=== PATIENT | female | born 1960 | race Two or more races ===

== ENCOUNTER 2017-05-16 08:12 | Emergency (ER) | payer OTHER ==
[2017-05-16] MEDS ORDERED: methylPREDNISolone 125 MG* 2 ML VIAL IV ONE (08:24)
[2017-05-16] MEDS ORDERED: Ipratropium 0.5MG/2.5ML NEB* 0.5 MG/2.5 ML NEB.SOLN INH ONE (08:24)
[2017-05-16] MEDS ORDERED: Albuterol 2.5 MG/3 ML NEB.SOL* (0.083%) INH ONE (08:24)
--- NOTE | 2017-05-16 08:31 | UC ---
Shortness of Breath HPI - HPI Summary HPI Summary: 56 yo female with progressively worsening dyspnea x 4 days no CP no fever - History of Current Complaint Stated Complaint: SOB Hx Obtained From: Patient Onset/Duration: Sudden Onset, Lasting Days Timing: Constant Current Severity: Severe Dyspnea At: Rest Alleviating Factors: Nothing Associated Signs & Symptoms: Positive: Cough (Nonproductive) - Allergy/Home Medications Allergies/Adverse Reactions: Allergies Allergy/AdvReac Type Severity Reaction Status Date / Time Hydroxychloroquine Allergy Unknown Verified 04/09/14 11:39 Reaction Details Lisinopril Allergy Unknown Verified 04/09/14 11:39 Reaction Details PMH/Surg Hx/FS Hx/Imm Hx Previously Healthy: No - SAN[place] Respiratory History: COPD, Bronchitis, Pneumonia - Surgical History Surgical History: Yes Surgery Procedure, Year, and Place: 1988 LOWER LEFT LUMBAR SURGERY, [place], [place]. LEFT BREAST BIOPSY-BENIGN - Family History Known Family History: Positive: Hypertension - Social History Alcohol Use: Occasionally Substance Use Type: None Smoking Status (MU): Current Every Day Smoker Type: Cigarettes Amount Used/How Often: 1/2 ppd Have You Smoked in the Last Year: Yes Household Exposure Type: Cigarettes - Immunization History Most Recent Influenza Vaccination: none Most Recent Tetanus Shot: up to date Most Recent Pneumonia Vaccination: none Review of Systems Constitutional: Fatigue Skin: Negative Eyes: Negative ENT: Negative Respiratory: Shortness Of Breath, Cough Cardiovascular: Negative Gastrointestinal: Negative Genitourinary: Negative Motor: Negative Neurovascular: Negative Musculoskeletal: Negative Neurological: Negative Psychological: Negative Is Patient Immunocompromised?: No All Other Systems Reviewed And Are Negative: Yes Physical Exam Triage Information Reviewed: Yes Appearance: Ill-Appearing Vital Signs Reviewed: Yes Eyes: Positive: Conjunctiva Clear ENT: Positive: Hearing grossly normal, Uvula midline. Negative: Nasal congestion, TM bulging Neck: Positive: Supple Respiratory: Positive: Respiratory distress, Decreased breath sounds, Accessory muscle use, Wheezing, Other: - increased work of breathing Cardiovascular: Positive: RRR Diagnostics - Laboratory Diagnostic Studies Completed/Ordered: pox 81% on 4 L NC, comment - hypoxia Shortness of Breath Dx - Course Course Of Treatment: d/w Dr. Duarte. To [facility] via EMS - Differential Dx/Diagnosis Provider Diagnoses: dyspnea/hypoxia. COPD Discharge - Discharge Plan Condition: Guarded Disposition: [facility] Referrals: Alma Delia Castellano MD [Primary Care Provider] -
[2017-05-16 08:32] VITALS: BP 158/67
== END 2017-05-16 08:56 | disposition short-term general hospital (02) ==
LOC: UCEAST 08:12 → MERGE 08:12 → UCEAST 08:56
DX: R06.00 Dyspnea, unspecified (principal); Z72.0 Tobacco use; R09.02 Hypoxemia; J44.9 Chronic obstructive pulmonary disease, unspecified
CPT/HCPCS: 96372; 99213; G0463; J2930; J7644

== ENCOUNTER 2017-05-16 09:21 | Inpatient (IN) | payer OTHER ==
[2017-05-16 09:34] LABS: EPAP 7.5; FIO2 100
[2017-05-16 09:40] LABS: Hematocrit 44 % (35-47); Hemoglobin 14.7 g/dl (12.0-16.0); Mean Corpuscular HGB Conc 33 g/dl (31-36); Mean Corpuscular Hemoglobin 30 pg (27-31); Mean Corpuscular Volume 90 fL (80-97); Mean Platelet Volume 8 um3 (7.4-10.4); Red Blood Count 4.96 10^6/ul (4.0-5.4); Red Cell Distribution Width 16 % (10.5-15); White Blood Count 10.1 10^3/ul (3.5-10.8)
[2017-05-16 09:41] LABS: PCO2 Arterial 53 mmHg (35-45)
[2017-05-16 09:52] LABS: Albumin 4.2 g/dL (3.2-5.2); BUN/Creatinine Ratio 31.5 (8-20); C Reactive Protein 14.02 mg/L (< 5.00); Calcium 9.7 mg/dL (8.6-10.3); EGFR African American 149.1 (>60); Globulin 3.7 g/dL (2-4); Potassium 3.9 mmol/L (3.5-5.0); Total Bilirubin 0.4 mg/dL (0.2-1.0); Total Protein 7.9 g/dL (6.4-8.9)
--- NOTE | 2017-05-16 10:45 | RAD ---
INDICATION: Shortness of breath. COMPARISON: Comparison is made with a prior chest x-ray study from February 24, 2016. TECHNIQUE: A portable view of the chest was obtained. FINDINGS: Cardiac and mediastinal contours appear to be within normal limits. The lungs are hyperinflated and clear. No pleural effusion is seen. IMPRESSION: NO EVIDENCE FOR ACUTE FINDING.
[2017-05-16 11:15] LABS: BIPAP 10; FIO2 100; IPAP 5
[2017-05-16 11:17] LABS: PCO2 Arterial 58 mmHg (35-45)
[2017-05-16] MEDS ORDERED: Albuterol/Ipratropium NEB.SOL* Albuterol 2.5 MG/Ipratropium 0.5 MG 3 ML INH PRN (12:34)
[2017-05-16] MEDS ORDERED: Nicotine Inhaler* 10 MG AMP INH PRN (12:59)
--- NOTE | 2017-05-16 12:59 | HP ---
H&P (Free Text) History and Physical: CRITICAL CARE MEDICINE DATE: 05/16/17 TIME: 1200 PRIMARY CARE PROVIDER: Gray. REFERRING PROVIDER: Darci REASON/CHIEF COMPLAINT: sob HISTORY OF PRESENT ILLNESS: 56 F with chronic res failure on 4L O2 at home and bipap nocturnally, still working at [employer], and still smoking; started with URI and then she thinks it progressed to her chest and shortness of breath inc over last 2 days. No real increased sputum. No fever, chills, cp. REVIEW OF SYSTEMS: As per HPI. PAST MEDICAL HISTORY: As per HPI. Severe COPD, mod-severe dec diffusion capacity as well, HTN, tolu, obesity. MEDICATIONS: Reviewed. ALLERGIES: Hydroxychloroquine, lisinopril SOCIAL HISTORY: Reviewed. , active tob use when off o2 FAMILY HISTORY: Noncontributory at present. PHYSICAL EXAM: Vital Signs: Reviewed. Neurologic: awake, communicating, nonfocal, holds [place] HEENT: anicteric, adentition, mmm Cardiovascular: S1, S2 distant Respiratory: wheezes, R>L Abdomen: obese, soft Extremities: warm, chronic dep edema Access: piv LABS: Reviewed. IMAGING: Reviewed. no new acute dz MEDICATIONS: Reviewed. ASSESSMENT: 56 F Acute on chronic hypercarbic resp failure COPD exacerbation PLAN: Neurologic: stable. Cardiovascular: Perfusing. Mild interstitial volume, and much of these may be a chronic component of her chronic pulm htn degree. No need to augment. Respiratory: Rescued with bipap to improve her ventilation and now her A-a gradient vastly improved post ventilation. Can come off bipap. f/u her wheeze/ bronchospasm as she may still benefit from some more time with bipap today and then certainly tonight. IV steroids and copd adjunctives. No pna, nor really even bronchitis and would reserve abx at this time, but if lingering could consider for copd exac/anti-inflam benefits. Gastrointestinal: Po diet. Renal/Metabolic: stable. f/u with steroids. no ivf needed. Infectious Disease: as above Hematology: stable. lovenox sq Endocrine: steroids and taper. bg ok Musculoskeletal: oob and avoid deconditioning Psych/Social: pt and expressed understanding. we discuss tob cessation. try inh. Supportive and preventative care as ordered. Vaccine: received previously. SUP: po VTE prophylaxis: lovenox Disposition: ICU today Code Status: Full Critical Care Time: 45min Ann Torres DO
[2017-05-16] MEDS ORDERED: Albuterol/Ipratropium NEB.SOL* Albuterol 2.5 MG/Ipratropium 0.5 MG 3 ML INH SCH (13:00)
[2017-05-16] MEDS ORDERED: ALPRAZolam TAB* 0.25 MG PO PRN (13:47)
[2017-05-16] MEDS: methylPREDNISolone SOD 40 MG* 1 ML VIAL IV SCH ×2 (14:35→21:33)
[2017-05-16] MEDS: Enoxaparin(*) 40 MG/0.4 ML SYR SUBCUT SCH (14:35)
--- NOTE | 2017-05-16 18:57 | ED ---
Jonathan Turner Angela, scribed for J Luis Bejarano MD on 05/16/17 at 0926 . Shortness of Breath - HPI Summary HPI Summary: This pt is a 56 y/o female presenting to [facility] via EMS from Urgent Care c/o dyspnea and respiratory distress today. She states that while at work yesterday she was without oxygen and had increased SOB. Pt notes that when she got home from work she increased her home O2 NC from her normal 4L to 5L with minimal improvement. Pt reports she has been having cold symptoms for the past week. Pt does not know her baseline O2 saturation on home O2. Per EMS, pt was off O2 for 2 minutes as her home O2 NC fell off and her O2 saturation dropped to 74%. They state it took 5 minutes to get the pt back up to 89% with CPAP. En route, pt had 2 duo nebs and 125 mg Solu-medrol. PMHx includes COPD, HTN. - History of Current Complaint Time Seen by Provider: 05/16/17 09:22 Hx Obtained From: Patient, EMS, Medical Records - triage note Onset/Duration: Lasting Days, Still Present Timing: Constant Current Severity: Severe Dyspnea At: Rest Alleviating Factors: Oxygen, Other - solu-medrol, bipap, and duo-nebs Associated Signs & Symptoms: Wheezing - Allergy/Home Medications Allergies/Adverse Reactions: Allergies Allergy/AdvReac Type Severity Reaction Status Date / Time Hydroxychloroquine Allergy Unknown Verified 04/09/14 11:39 Reaction Details Lisinopril Allergy Unknown Verified 04/09/14 11:39 Reaction Details Home Medications: Home Medications Albuterol/Ipratropium NEB.GEORGETTE* [Duoneb (Albuterol 2.5 MG/Ipratropium 0.5 MG)] 1 neb INH QID PRN 05/16/17 [History Confirmed 05/16/17] Fluticasone HFA 110 mcg(NF) [Flovent HFA 110 mcg(NF)] 2 puff INH BID 05/16/17 [ History Confirmed 05/16/17] Hydrochlorothiazide TAB* [Hydrodiuril TAB*] 12.5 mg PO DAILY 05/16/17 [History Confirmed 05/16/17] Irbesartan (NF) [Avapro (NF)] 300 mg PO DAILY 05/16/17 [History Confirmed ] amLODIPine TAB* [Norvasc 5 mg TAB*] 10 mg PO DAILY 05/16/17 [History Confirmed 05/16/17] PMH/Surg Hx/FS Hx/Imm Hx Cardiovascular History: Reports: Hx Hypertension, Other Cardiovascular Problems/ Disorders - HBP Respiratory History: Reports: Hx Asthma, Hx Chronic Obstructive Pulmonary Disease (COPD) Musculoskeletal History: Reports: Hx Arthritis - BILATERAL KNEES, BACK Sensory History: Reports: Hx Contacts or Glasses Denies: Hx Hearing Aid Opthamlomology History: Reports: Hx Contacts or Glasses - Cancer History Hx Chemotherapy: No Hx Radiation Therapy: No - Surgical History Surgery Procedure, Year, and Place: 1988 LOWER LEFT LUMBAR SURGERY, [place], [place]. LEFT BREAST BIOPSY-BENIGN Hx Anesthesia Reactions: No Infectious Disease History: Denies: Hx Clostridium Difficile, Hx Hepatitis, Hx Human Immunodeficiency Virus (HIV), Hx of Known/Suspected MRSA, Hx Shingles, Hx Tuberculosis, Hx Known/ Suspected VRE, Hx Known/Suspected VRSA, History Other Infectious Disease - Family History Known Family History: Positive: Hypertension - Social History Alcohol Use: Occasionally Substance Use Type: Reports: None Hx Tobacco Use: Yes Smoking Status (MU): Current Every Day Smoker Type: Cigarettes Amount Used/How Often: 1/2 ppd Have You Smoked in the Last Year: Yes Review of Systems Negative: Fever, Chills Positive: Shortness Of Breath All Other Systems Reviewed And Are Negative: Yes Physical Exam - Summary Physical Exam Summary: VITAL SIGNS: Reviewed. GENERAL: Patient is an obese female in Bipap, saturating about 88%. HEAD AND FACE: No signs of trauma. No ecchymosis, hematomas or skull depressions. No sinus tenderness. EYES: PERRLA, EOMI x 2, No injected conjunctiva, no nystagmus. EARS: Hearing grossly intact. Ear canals and tympanic membranes are within normal limits. MOUTH: Oropharynx within normal limits. NECK: Supple, trachea is midline, no adenopathy, no JVD, no carotid bruit, no c- spine tenderness, neck with full ROM. CHEST: Symmetric, no tenderness at palpation LUNGS: There are diffuse wheezing, with some crackles in both bases of the lungs. CVS: Regular rate and rhythm, S1 and S2 present, no murmurs or gallops appreciated. ABDOMEN: Soft, non-tender. No signs of distention. No rebound no guarding, and no masses palpated. Bowel sounds are normal. EXTREMITIES: FROM in all major joints, no edema, no cyanosis or clubbing. NEURO: Alert and oriented x 3. No acute neurological deficits. Speech is normal and follows commands. SKIN: Dry and warm Triage Information Reviewed: Yes Vital Signs On Initial Exam: Initial Vitals Pulse Resp BP Pulse Ox 97 27 145/66 87 05/16/17 09:21 05/16/17 09:21 05/16/17 09:21 05/16/17 09:21 Vital Signs Reviewed: Yes Diagnostics - Vital Signs Vital Signs Temp Pulse Resp BP Pulse Ox 05/16/17 11:08 72 19 99 05/16/17 10:06 89 17 99 05/16/17 09:40 95 25 110/72 86 05/16/17 09:30 93 22 108/87 87 05/16/17 09:22 99.2 F 98 30 145/66 87 05/16/17 09:21 97 27 145/66 87 - Laboratory Lab Results: Lab Results 05/16/17 05/16/17 05/16/17 Range/Units 09:27 09:27 09:27 WBC (3.5-10.8) 10^3/ul RBC (4.0-5.4) 10^6/ul Hgb (12.0-16.0) g/dl Hct (35-47) % MCV (80-97) fL MCH (27-31) pg MCHC (31-36) g/dl RDW (10.5-15) % Plt Count (150-450) 10^3/ul MPV (7.4-10.4) um3 Neut % (Auto) (38-83) % Lymph % (Auto) (25-47) % [place] % (Auto) (1-9) % Eos % (Auto) (0-6) % Baso % (Auto) (0-2) % Absolute Neuts (auto) (1.5-7.7) 10^3/ul Absolute Lymphs (auto) (1.0-4.8) 10^3/ul Absolute Monos (auto) (0-0.8) 10^3/ul Absolute Eos (auto) (0-0.6) 10^3/ul Absolute Basos (auto) (0-0.2) 10^3/ul Absolute Nucleated RBC 10^3/ul Nucleated RBC % APTT 31.0 (26.0-36.3) seconds D-Dimer, Quantitative 258 H (Less Than 230) ng/mL Patient Temperature ABG pH (7.35-7.45) ABG pH (Temp Correct) ABG pCO2 (35-45) mmHg ABG pCO2 (Temp Corrct ABG pO2 (80-100) mmHg ABG pO2 (Temp Correct ABG HCO3 (19-31) mmol/L ABG O2 Saturation (95-98) % ABG Base Excess (-2.0-2.0) Respiration Rate O2 Delivery Device Ventilator Type Vent Mode FiO2 Inspiratory Time PEEP Pressure Support Pressure Control EPAP IPAP BiPAP Sodium 137 (133-145) mmol/L Potassium 3.9 (3.5-5.0) mmol/L Chloride 103 (101-111) mmol/L Carbon Dioxide 28 (22-32) mmol/L Anion Gap 6 (2-11) mmol/L BUN 17 (6-24) mg/dL Creatinine 0.54 (0.51-0.95) mg/dL Est GFR ( Amer) 149.1 (>60) Est GFR (Non-Af Amer) 116.0 (>60) BUN/Creatinine Ratio 31.5 H (8-20) Glucose 118 H (70-100) mg/dL Lactic Acid (0.5-2.0) mmol/L Calcium 9.7 (8.6-10.3) mg/dL Total Bilirubin 0.40 (0.2-1.0) mg/dL AST 16 (13-39) U/L ALT 11 (7-52) U/L Alkaline Phosphatase 120 H (34-104) U/L Total Creatine Kinase 58 (10-223) U/L CK-MB (CK-2) 1.8 (0.6-6.3) ng/mL Troponin I 0.00 (<0.04) ng/mL C-Reactive Protein 14.02 H (< 5.00) mg/L B-Natriuretic Peptide 45 ( - 100) pg/mL Total Protein 7.9 (6.4-8.9) g/dL Albumin 4.2 (3.2-5.2) g/dL Globulin 3.7 (2-4) g/dL Albumin/Globulin Ratio 1.1 (1-3) Influenza A (Rapid) (Negative) Influenza B (Rapid) (Negative) 05/16/17 05/16/17 05/16/17 Range/Units 09:27 09:27 09:30 WBC 10.1 (3.5-10.8) 10^3/ul RBC 4.96 (4.0-5.4) 10^6/ul Hgb 14.7 (12.0-16.0) g/dl Hct 44 (35-47) % MCV 90 (80-97) fL MCH 30 (27-31) pg MCHC 33 (31-36) g/dl RDW 16 H (10.5-15) % Plt Count 325 (150-450) 10^3/ul MPV 8 (7.4-10.4) um3 Neut % (Auto) 74.7 (38-83) % Lymph % (Auto) 16.2 L (25-47) % [place] % (Auto) 7.3 (1-9) % Eos % (Auto) 0.5 (0-6) % Baso % (Auto) 1.3 (0-2) % Absolute Neuts (auto) 7.5 (1.5-7.7) 10^3/ul Absolute Lymphs (auto) 1.6 (1.0-4.8) 10^3/ul Absolute Monos (auto) 0.7 (0-0.8) 10^3/ul Absolute Eos (auto) 0.1 (0-0.6) 10^3/ul Absolute Basos (auto) 0.1 (0-0.2) 10^3/ul Absolute Nucleated RBC 0.01 10^3/ul Nucleated RBC % 0 APTT (26.0-36.3) seconds D-Dimer, Quantitative (Less Than 230) ng/mL Patient Temperature Not Reportable ABG pH 7.35 (7.35-7.45) ABG pH (Temp Correct) Not Reportable ABG pCO2 53 H (35-45) mmHg ABG pCO2 (Temp Corrct Not Reportable ABG pO2 50 L* (80-100) mmHg ABG pO2 (Temp Correct Not Reportable ABG HCO3 26.4 (19-31) mmol/L ABG O2 Saturation 88.4 L (95-98) % ABG Base Excess 2.4 H (-2.0-2.0) Respiration Rate Not Reportable O2 Delivery Device Cpap Ventilator Type Not Reportable Vent Mode Not Reportable FiO2 100 Inspiratory Time Not Reportable PEEP Not Reportable Pressure Support Not Reportable Pressure Control Not Reportable EPAP 7.5 IPAP Not Reportable BiPAP Not Reportable Sodium (133-145) mmol/L Potassium (3.5-5.0) mmol/L Chloride (101-111) mmol/L Carbon Dioxide (22-32) mmol/L Anion Gap (2-11) mmol/L BUN (6-24) mg/dL Creatinine (0.51-0.95) mg/dL Est GFR ( Amer) (>60) Est GFR (Non-Af Amer) (>60) BUN/Creatinine Ratio (8-20) Glucose (70-100) mg/dL Lactic Acid 1.3 (0.5-2.0) mmol/L Calcium (8.6-10.3) mg/dL Total Bilirubin (0.2-1.0) mg/dL AST (13-39) U/L ALT (7-52) U/L Alkaline Phosphatase (34-104) U/L Total Creatine Kinase (10-223) U/L CK-MB (CK-2) (0.6-6.3) ng/mL Troponin I (<0.04) ng/mL C-Reactive Protein (< 5.00) mg/L B-Natriuretic Peptide ( - 100) pg/mL Total Protein (6.4-8.9) g/dL Albumin (3.2-5.2) g/dL Globulin (2-4) g/dL Albumin/Globulin Ratio (1-3) Influenza A (Rapid) (Negative) Influenza B (Rapid) (Negative) 05/16/17 05/16/17 Range/Units 10:15 11:05 WBC (3.5-10.8) 10^3/ul RBC (4.0-5.4) 10^6/ul Hgb (12.0-16.0) g/dl Hct (35-47) % MCV (80-97) fL MCH (27-31) pg MCHC (31-36) g/dl RDW (10.5-15) % Plt Count (150-450) 10^3/ul MPV (7.4-10.4) um3 Neut % (Auto) (38-83) % Lymph % (Auto) (25-47) % [place] % (Auto) (1-9) % Eos % (Auto) (0-6) % Baso % (Auto) (0-2) % Absolute Neuts (auto) (1.5-7.7) 10^3/ul Absolute Lymphs (auto) (1.0-4.8) 10^3/ul Absolute Monos (auto) (0-0.8) 10^3/ul Absolute Eos (auto) (0-0.6) 10^3/ul Absolute Basos (auto) (0-0.2) 10^3/ul Absolute Nucleated RBC 10^3/ul Nucleated RBC % APTT (26.0-36.3) seconds D-Dimer, Quantitative (Less Than 230) ng/mL Patient Temperature Not Reportable ABG pH 7.32 L (7.35-7.45) ABG pH (Temp Correct) Not Reportable ABG pCO2 58 H (35-45) mmHg ABG pCO2 (Temp Corrct Not Reportable ABG pO2 341 H (80-100) mmHg ABG pO2 (Temp Correct Not Reportable ABG HCO3 26.6 (19-31) mmol/L ABG O2 Saturation 99.3 H (95-98) % ABG Base Excess 2.2 H (-2.0-2.0) Respiration Rate Not Reportable O2 Delivery Device Bipap Ventilator Type Not Reportable Vent Mode Bipap FiO2 100 Inspiratory Time Not Reportable PEEP Not Reportable Pressure Support Not Reportable Pressure Control Not Reportable EPAP Not Reportable IPAP 5 BiPAP 10 Sodium (133-145) mmol/L Potassium (3.5-5.0) mmol/L Chloride (101-111) mmol/L Carbon Dioxide (22-32) mmol/L Anion Gap (2-11) mmol/L BUN (6-24) mg/dL Creatinine (0.51-0.95) mg/dL Est GFR ( Amer) (>60) Est GFR (Non-Af Amer) (>60) BUN/Creatinine Ratio (8-20) Glucose (70-100) mg/dL Lactic Acid (0.5-2.0) mmol/L Calcium (8.6-10.3) mg/dL Total Bilirubin (0.2-1.0) mg/dL AST (13-39) U/L ALT (7-52) U/L Alkaline Phosphatase (34-104) U/L Total Creatine Kinase (10-223) U/L CK-MB (CK-2) (0.6-6.3) ng/mL Troponin I (<0.04) ng/mL C-Reactive Protein (< 5.00) mg/L B-Natriuretic Peptide ( - 100) pg/mL Total Protein (6.4-8.9) g/dL Albumin (3.2-5.2) g/dL Globulin (2-4) g/dL Albumin/Globulin Ratio (1-3) Influenza A (Rapid) Negative (Negative) Influenza B (Rapid) Negative (Negative) Result Diagrams: 05/16/17 09:27 05/16/17 09:27 Lab Statement: Any lab studies that have been ordered have been reviewed, and results considered in the medical decision making process. - Radiology Chest XR Xray Interpretation: No Acute Changes - IMPRESSION: No evidence for acute finding. ED physician has reviewed this radiology report and agrees. Radiology Interpretation Completed By: Radiologist - EKG 0940 Cardiac Rate: NL EKG Rhythm: Sinus Rhythm - at 95 bpm EKG Interpretation: No ST elevations Course/Dx - Course Assessment/Plan: This pt is a 56 y/o female presenting to [facility] via EMS from Urgent Care c/o dyspnea and respiratory distress today. She states that while at work yesterday she was without oxygen and had increased SOB. Pt notes that when she got home from work she increased her home O2 NC from her normal 4L to 5L with minimal improvement. Pt reports she has been having cold symptoms for the past week. Pt does not know her baseline O2 saturation on home O2. Per EMS , pt was off O2 for 2 minutes as her home O2 NC fell off and her O2 saturation dropped to 74%. They state it took 5 minutes to get the pt back up to 89% with CPAP. En route, pt had 2 duo nebs and 125 mg Solu-medrol. PMHx includes COPD, HTN. Test results without any significant abnormalities. AbG shows the pt slightly hypocapnic and hypoxic. In the ED course, the pt was given Bipap and her saturation increased to 99%. Chest XR shows no pneumonia. At this time, I discussed the test results and findings with Dr. Torres, who accepted the pt for admission. He requested to do a D-dimer, for which he will follow up on the results. If needed, he will order a chest CT. At this point the pt is feeling better. Pt is hemodynamically stable, alert and oriented x3. - Diagnoses Differential Diagnosis/HQI/PQRI: Positive: Bronchitis, CHF, COPD Exacerbation, Pneumonia, Pulmonary Edema Provider Diagnoses: COPD exacerbation, Hypoxia, Hypocapnia - Physician Notifications Discussed Care of Patient With: Jayy Torres Time Discussed With Above Provider: 10:57 Instructed by Provider To: Other - I discussed the pt's case with Dr. Torres, hospitalist, who has accepted the pt for admission. - Critical Care Time Critical Care Time: 30-74 min Discharge - Discharge Plan Condition: Stable Disposition: ADMITTED TO [facility] The documentation as recorded by the Jonathan carreno Angela accurately reflects the service I personally performed and the decisions made by me, J Luis Bejarano MD.
[2017-05-16] MEDS: Albuterol/Ipratropium NEB.SOL* Albuterol 2.5 MG/Ipratropium 0.5 MG 3 ML INH SCH ×3 (19:42→22:44)
[2017-05-16] MEDS: Mometasone/Formoter 100/5 MDI INH SCH (19:49)
[2017-05-16 23:52] LABS: Urine Bilirubin Negative (Negative); Urine Glucose Negative (Negative); Urine Nitrite Negative (Negative)
[2017-05-17] MEDS: Acetaminophen TAB* 325 MG PO PRN ×2 (01:02→08:02)
[2017-05-17] MEDS: Albuterol/Ipratropium NEB.SOL* Albuterol 2.5 MG/Ipratropium 0.5 MG 3 ML INH SCH ×4 (03:21→19:07)
[2017-05-17] MEDS: methylPREDNISolone SOD 40 MG* 1 ML VIAL IV SCH (05:40)
[2017-05-17] MEDS: Mometasone/Formoter 100/5 MDI INH SCH ×2 (07:12→19:07)
[2017-05-17] MEDS: predniSONE TAB* 20 MG PO SCH (07:57)
[2017-05-17] MEDS: Nicotine PATCH 14 MG/24 HR* PATCH TRANSDERM SCH (07:58)
--- NOTE | 2017-05-17 09:49 | PN ---
Progress Note - Progress Note Date of Service: 05/17/17 Note: CRITICAL CARE MEDICINE DATE: 05/17/17 TIME: 920 SUBJECTIVE: Patient seen and examined. Feels ok but tired. some sleep. PHYSICAL EXAM: Vital Signs: Reviewed. Neurologic: communicating, nonfocal HEENT: anicteric, adentition, mmm Cardiovascular: S1, S2 distant Respiratory: mild wheezes still R>L Abdomen: obese, soft Extremities: warm, chronic dep edema Access: piv LABS: Reviewed. IMAGING: Reviewed. MEDICATIONS: Reviewed. ASSESSMENT: 56 F Acute on chronic hypercarbic resp failure COPD exacerbation ?bronchitis PLAN: Neurologic: stable. Cardiovascular: Perfusing. vol ok. Respiratory: Rescued with bipap but needs HFO2 for A-a still as exaccerabtion increasing space. Some increased sputum mobilization now. explained copd regimen and given lingered course will add azithro too. O2 as needed during day and bipap nocturnal today. IS. Gastrointestinal: Po diet. Renal/Metabolic: stable. Infectious Disease: azithro Hematology: stable. lovenox sq Endocrine: steroids and taper. bg ok Musculoskeletal: oob and avoid deconditioning Psych/Social: pt expressed understanding. nicotine suppl. paperwork filled out for current work leave. Supportive and preventative care as ordered. SUP: po VTE prophylaxis: lovenox Disposition: ICU today as this may be slow given her poor reserve Code Status: Full Critical Care Time: 28min Ann Torres DO
[2017-05-17] MEDS ORDERED: predniSONE TAB* 20 MG PO ONE (10:00)
[2017-05-17] MEDS: Azithromycin TAB* 250 MG PO SCH (10:30)
[2017-05-17] MEDS: Enoxaparin(*) 40 MG/0.4 ML SYR SUBCUT SCH (14:53)
[2017-05-17] MEDS ORDERED: Mouth Piece, Nicotine* 1 EACH CARTRIDGE ONE (15:13)
--- NOTE | 2017-05-17 16:14 | ECHO ---
Patient: YOSEPH [facility]STR[facility] Rec#: [id number] : 1960 Date: 05/17/2017 Age: 56y Height: 175 cm / 68.9 in Weight: 115 kg / 253.5 lbs Sex: F BSA: 2.3 Room#: ICU 1 Admit Date#: 05/16/2017 Type: Inpatient Referring: Jayy Torres Reading: Joey Briceno DO Direct Support Worker: Grace Mason RN RDCS CC: EUSEBIO MCFADDEN CC: LIBBY ALICEA Transthoracic Echocardiogram Indication: SOB, Respiratory failure BP: 129/53 HR: 77 Rhythm: NSR with PACs Findings History: Severe COPD, smoker, HTN, [place], obesity Technical Comments: The study quality is fair. The study is technically limited due to patient body habitus. The study is technically limited due to the patient's history of COPD. The study is technically limited due to the patient's smoking history. Left Ventricle: The left ventricular chamber size is mildly dilated. There is no left ventricular hypertrophy. Global left ventricular wall motion and contractility are within normal limits. There is normal left ventricular systolic function. The estimated ejection fraction is 55-60%. There is no consistent Doppler evidence of clinically significant diastolic dysfunction. Left Atrium: The left atrium is mildly dilated. Right Ventricle: The right ventricular chamber size and systolic function are within normal limits. Right Atrium: The right atrium is mildly dilated. The bubble study is negative. A patent foramen ovale is not demonstrated by agitated contrast. There is evidence of an atrial septal aneurysm. Aortic Valve: The aortic valve is trileaflet. The aortic valve leaflets are mildly thickened. There is a trace of aortic regurgitation. There is no evidence of aortic stenosis. Mitral Valve: The mitral valve leaflets are mildly thickened. There is trace to mild mitral regurgitation. There is no evidence of mitral stenosis. Tricuspid Valve: The tricuspid valve leaflets are normal. There is trace tricuspid regurgitation. Unable to estimate the right ventricular systolic pressure. There is no tricuspid stenosis. Pulmonic Valve: The pulmonic valve appears normal. There is a trace pulmonic regurgitation. There is no pulmonic stenosis. Pericardium: There is no significant pericardial effusion. Aorta: There is no dilatation of the ascending aorta. There is no dilatation of the aortic arch. There is no dilation of the aortic root. Pulmonary Artery: The main pulmonary artery appears normal. Venous: The inferior vena cava is dilated. There is less than 50% respiratory change in the inferior vena cava dimension. Contrast: Normal saline was used as contrast for the bubble study. Images 128 and 129. Conclusions The left ventricular chamber size is mildly dilated. There is no left ventricular hypertrophy. Global left ventricular wall motion and contractility are within normal limits. There is normal left ventricular systolic function. There is intermittent interventricular septal "bounce" of uncertain cause. The estimated ejection fraction is 55-60%. The left atrium is mildly dilated. The right ventricular chamber size and systolic function are within normal limits. The agitated saline "bubble study" is negative. There is trace tricuspid regurgitation. Unable to estimate the right ventricular systolic pressure. Comapred to prior study from 03/2016, the LVEF is now normal (was mildly reduced previously), LA size is mildly dilated (was reported at moderate -severely dilated previously), now unable to estimate PASP (was mildy elevated previously) Measurements Name Value Normal Range RVDdMajor (2D) 4.2 cm (2.2 - 4.4) RAd ISD 4CH 4.4 cm (3.4 - 4.9) RA (A4C)W 5.1 cm (2.9 - 4.6) IVSd (2D) 1 cm (0.6 - 1) LVPWd (2D) 1 cm (0.6 - 1) LVIDd (2D) 5.6 cm (3.6 - 5.4) LVIDs (2D) 4.4 cm - LV FS (2D) 21 % (25 - 45) Aortic Annulus 2.3 cm (1.4 - 2.6) Ao root diameter (2D) 2.9 cm (2.1 - 3.5) Ascending Ao 3 cm (2.1 - 3.4) Aortic arch 2.9 cm (1.8 - 3.4) LA dimension (AP) 2D 4 cm (2.3 - 3.8) LAd ISD 4CH 4.9 cm (2.9 - 5.3) LA ISD 4CH W 4.5 cm (2.5 - 4.5) Name Value Normal Range LA ESV SP 4CH (A/L) 75 ml - LA ESV SP 2CH (A/L) 71 ml - LA ESV BP (A/L) 74 ml - LA ESV BP (A/L) index 32.6 ml/m2 - LA ESV SP 4CH (MOD) 72 ml - LA ESV SP 2CH (MOD) 67 ml - Name Value Normal Range MV E-wave Vmax 1.3 m/sec - MV deceleration time 207 msec - MV A-wave Vmax 1.1 m/sec - MV E:A ratio 1.2 ratio - LV septal e' Vmax 0.08 m/sec - LV lateral e' Vmax 0.1 m/sec - LV E:e' septal ratio 16.3 ratio - LV E:e' lateral ratio 13 ratio - Name Value Normal Range AV Vmax 1.9 m/sec - AV VTI 43.9 cm - AV peak gradient 14.3 mmHg - AV mean gradient 8.6 mmHg - LVOT Vmax 1.3 m/sec - LVOT VTI 29.2 cm - LVOT peak gradient 6.3 mmHg - LVOT mean gradient 3.5 mmHg - MINERVA Vmax 0.83 m/sec - Name Value Normal Range IVC diameter 2.5 cm - Name Value Normal Range PV Vmax 1.2 m/sec -
[2017-05-17] MEDS: Nicotine Patch Removal NOTE FOLLOW UP SCH (21:24)
[2017-05-18] MEDS: Albuterol/Ipratropium NEB.SOL* Albuterol 2.5 MG/Ipratropium 0.5 MG 3 ML INH SCH ×4 (01:20→19:08)
[2017-05-18 06:26] LABS: Hematocrit 43 % (35-47); Mean Corpuscular HGB Conc 33 g/dl (31-36); Mean Corpuscular Hemoglobin 29 pg (27-31); Mean Corpuscular Volume 90 fL (80-97); Mean Platelet Volume 8 um3 (7.4-10.4); Red Blood Count 4.76 10^6/ul (4.0-5.4); Red Cell Distribution Width 16 % (10.5-15); White Blood Count 21.7 10^3/ul (3.5-10.8)
[2017-05-18 06:35] LABS: BUN/Creatinine Ratio 47.4 (8-20); Blood Urea Nitrogen 27 mg/dL (6-24); CO2 Carbon Dioxide 30 mmol/L (22-32); Calcium 9.4 mg/dL (8.6-10.3); Chloride 102 mmol/L (101-111); EGFR African American 140.1 (>60); EGFR Non-African American 108.9 (>60); Glucose 100 mg/dL (70-100); Phosphorus 3.5 mg/dL (2.5-5.0); Sodium 136 mmol/L (133-145)
[2017-05-18 08:10] LABS: Anion Gap 4 mmol/L (2-11)
[2017-05-18] MEDS: Mometasone/Formoter 100/5 MDI INH SCH ×2 (08:22→19:08)
[2017-05-18] MEDS: Nicotine PATCH 14 MG/24 HR* PATCH TRANSDERM SCH (08:44)
[2017-05-18] MEDS: predniSONE TAB* 20 MG PO SCH (08:44)
[2017-05-18] MEDS: Azithromycin TAB* 250 MG PO SCH (08:44)
[2017-05-18] MEDS ORDERED: predniSONE TAB* 20 MG PO ONE (10:14)
--- NOTE | 2017-05-18 10:45 | PN ---
Progress Note - Progress Note Date of Service: 05/18/17 Note: CRITICAL CARE MEDICINE DATE: 05/18/17 TIME: 925 SUBJECTIVE: Patient seen and examined. Feels ok, about same. PHYSICAL EXAM: Vital Signs: Reviewed. down to 15lpm with sats high 80s. Neurologic: communicating, nonfocal HEENT: anicteric, adentition, mmm Cardiovascular: S1, S2 distant Respiratory: mild wheezes still but less R>L Abdomen: obese, soft Extremities: warm, chronic dep edema Access: piv LABS: Reviewed. IMAGING: Reviewed. MEDICATIONS: Reviewed. ASSESSMENT: 56 F Acute on chronic hypoxic and hypercarbic resp failure COPD exacerbation viral bronchitis tobacco abuse PLAN: Neurologic: stable. Cardiovascular: Perfusing. vol ok. Respiratory: bipap nocturnal. copd adjunctives. still needing FiO2 given poor diffusion. maintain sat >85%. slowly wean and allow equilibration this weekend. added azithro and singulair for what they could be worth to her. on inh steroid, duonebs. just going to be slow. we discussed potential dependency on HFO2 and attempts to wean. IS. Gastrointestinal: Po diet. Renal/Metabolic: stable. Infectious Disease: azithro for 5 days Hematology: stable. lovenox sq Endocrine: steroids and taper tomorrow. bg ok Musculoskeletal: oob and avoid deconditioning Psych/Social: pt expressed understanding. nicotine suppl. Supportive and preventative care as ordered. SUP: po VTE prophylaxis: lovenox Disposition: ICU today; slow progress Code Status: Full Critical Care Time: 25min Ann Torres DO
[2017-05-18] MEDS: Montelukast Sodium TAB* 10 MG PO SCH (10:57)
[2017-05-18] MEDS: Enoxaparin(*) 40 MG/0.4 ML SYR SUBCUT SCH (12:45)
[2017-05-18] MEDS: Nicotine Patch Removal NOTE FOLLOW UP SCH (22:15)
[2017-05-19] MEDS: Albuterol/Ipratropium NEB.SOL* Albuterol 2.5 MG/Ipratropium 0.5 MG 3 ML INH SCH ×4 (00:38→19:04)
[2017-05-19] MEDS: Mometasone/Formoter 100/5 MDI INH SCH ×2 (08:11→19:04)
[2017-05-19] MEDS: Nicotine PATCH 14 MG/24 HR* PATCH TRANSDERM SCH (08:32)
[2017-05-19] MEDS: Azithromycin TAB* 250 MG PO SCH (08:32)
[2017-05-19] MEDS: predniSONE TAB* 20 MG PO SCH (08:32)
[2017-05-19] MEDS: Montelukast Sodium TAB* 10 MG PO SCH (08:32)
--- NOTE | 2017-05-19 10:11 | PN ---
Progress Note - Progress Note Date of Service: 05/19/17 Note: CRITICAL CARE MEDICINE DATE: 05/19/17 TIME: 900 SUBJECTIVE: Patient seen and examined. Feels a bit better. 15L now off HFO2. PHYSICAL EXAM: Vital Signs: Reviewed. Neurologic: communicating, nonfocal HEENT: anicteric, adentition, mmm Cardiovascular: S1, S2 distant Respiratory: mild wheezes but better Abdomen: obese, soft Extremities: warm, chronic dep edema stable Access: 1 piv LABS: Reviewed. IMAGING: Reviewed. MEDICATIONS: Reviewed. ASSESSMENT: 56 F Acute on chronic hypoxic and hypercarbic resp failure COPD exacerbation viral bronchitis tobacco abuse PLAN: Neurologic: stable. Cardiovascular: Perfusing. vol ok. Respiratory: expectorating some. copd adjunctives. IS. perhaps out of icu tomrrrow as long as no rescue needs. home bipap nocturnal, may need to get towards triology ultimately and needs an outpt pulm f/u Gastrointestinal: Po diet. Renal/Metabolic: stable. Infectious Disease: azithro for 5 days for bronchitis/copd Hematology: stable. lovenox sq Endocrine: steroid taper. g ok Musculoskeletal: oob and avoid deconditioning; ambulate Psych/Social: pt expressed understanding. nicotine suppl. Supportive and preventative care as ordered. SUP: po VTE prophylaxis: lovenox Disposition: ICU today to ensure no rescue needs and to floor tomorrow and will need re-eval of escalating home O2 needs Code Status: Full presently - consider palliative eval for info Critical Care Time: 24min Ann Torres DO
[2017-05-19] MEDS: Enoxaparin(*) 40 MG/0.4 ML SYR SUBCUT SCH (13:03)
[2017-05-19] MEDS: Nicotine Patch Removal NOTE FOLLOW UP SCH (21:49)
[2017-05-20] MEDS: Albuterol/Ipratropium NEB.SOL* Albuterol 2.5 MG/Ipratropium 0.5 MG 3 ML INH SCH ×2 (01:23→09:27)
[2017-05-20 05:29] LABS: Hematocrit 41 % (35-47); Hemoglobin 13.4 g/dl (12.0-16.0); Mean Corpuscular HGB Conc 33 g/dl (31-36); Mean Corpuscular Hemoglobin 29 pg (27-31); Mean Corpuscular Volume 89 fL (80-97); Mean Platelet Volume 8 um3 (7.4-10.4); Red Blood Count 4.59 10^6/ul (4.0-5.4); Red Cell Distribution Width 16 % (10.5-15); White Blood Count 11.6 10^3/ul (3.5-10.8)
[2017-05-20 05:48] LABS: Calcium 9.1 mg/dL (8.6-10.3); EGFR Non-African American 111.2 (>60); Potassium 3.8 mmol/L (3.5-5.0)
[2017-05-20] MEDS: Montelukast Sodium TAB* 10 MG PO SCH (08:49)
[2017-05-20] MEDS: predniSONE TAB* 20 MG PO SCH (08:49)
[2017-05-20] MEDS: Nicotine PATCH 14 MG/24 HR* PATCH TRANSDERM SCH (08:51)
[2017-05-20] MEDS: Azithromycin TAB* 250 MG PO SCH (08:51)
--- NOTE | 2017-05-20 08:59 | PN ---
Subjective Date of Service: 05/20/17 Interval History: Patient seen this morning. Says she feels like her breathing is slowly improving. Continues to have intermittent productive cough, clear sputum. No fever/chills. Good PO intake, moving her bowels. Family History: Unchanged from Admission Social History: Unchanged from Admission Past Medical History: Unchanged from Admission Objective Active Medications: Acetaminophen (Tylenol Tab*) 650 mg PO Q6H PRN Albuterol/Ipratropium (Duoneb (Albuterol 2.5 Mg/Ipratropium 0.5 Mg)) 1 neb INH Q4H PRN Albuterol/Ipratropium (Duoneb (Albuterol 2.5 Mg/Ipratropium 0.5 Mg)) 1 neb INH [id number] AWAKE [facility] Alprazolam (Xanax Tab*) 0.25 mg PO Q8H PRN Azithromycin (Zithromax Tab*) 500 mg PO DAILY [facility] Enoxaparin Sodium (Lovenox(*)) 40 mg SUBCUT Q24H [facility] Mometasone Furoate/Formoterol Fumar (Dulera 100/5 Mdi*) 2 puff INH BID [facility] Montelukast Sodium (Singulair Tab*) 10 mg PO DAILY [facility] Nicotine (Nicotine Inhaler*) 10 mg INH Q2H PRN Nicotine (Nicotine Patch 14 Mg/24 Hr*) 1 patch TRANSDERM DAILY [facility] Pharmacy Profile Note (Nicotine Patch Removal Note*) 1 note FOLLOW UP 2100 [facility] Prednisone (Deltasone Tab*) 20 mg PO DAILY [facility] Vital Signs 05/19/17 05/19/17 05/19/17 09:00 10:00 11:00 Temperature Pulse Rate 75 70 71 Respiratory 13 21 22 Rate Blood Pressure (mmHg) O2 Sat by Pulse 91 93 92 Oximetry 05/19/17 05/19/17 05/19/17 20:00 20:01 21:00 Temperature Pulse Rate 85 80 74 Respiratory 13 24 20 Rate Blood Pressure 152/70 (mmHg) O2 Sat by Pulse 90 91 92 Oximetry 05/20/17 05/20/17 05/20/17 06:00 06:01 07:00 Temperature Pulse Rate 59 59 57 Respiratory 20 20 20 Rate Blood Pressure 98/39 115/56 (mmHg) O2 Sat by Pulse 90 89 91 Oximetry Oxygen Devices in Use Now: Nasal Cannula - 15L Appearance: Middle-aged, F, sitting in chair in NAD Eyes: No Scleral Icterus Ears/Nose/Mouth/Throat: Mucous Membranes Moist Neck: NL Appearance and Movements; NL JVP Respiratory: Symmetrical Chest Expansion and Respiratory Effort, - - Moderate air movement, scattered wheezes, no rales Cardiovascular: NL Sounds; No Murmurs; No JVD, RRR Abdominal: NL Sounds; No Tenderness; No Distention Lymphatic: No Cervical Adenopathy Extremities: No Edema Skin: No Rash or Ulcers Neurological: Alert and Oriented x 3 Result Diagrams: 05/20/17 05:15 05/20/17 05:15 Additional Lab and Data: . Microbiology and Other Data: . Assess/Plan/Problems-Billing Assessment: Acute on chronic hypoxic and hybercarbic respiratory failure 2/2 COPD exacerbation in a 56 yo F with hx of COPD on 4L NC, qhs BiPAP, tobacco abuse, HTN - Patient Problems (1) COPD exacerbation Current Visit: No Comment: Acute on chronic hypoxic and hypercarbic respiratory failure. Progressing slowly , currently on 15L NC, wean to 10L and see if patient can maintain O2 sat>85%. Continue PO Predisone, continue Azithromycin Day 4/5. Continue ATC nebs, duelra , singulair. Home BiPAP qhs. (2) HTN (hypertension) Current Visit: No Comment: BPs soft, holding home meds (3) Tobacco abuse Current Visit: No Comment: NRT (4) DVT prophylaxis Current Visit: Yes Comment: Lovenox Status and Disposition: Inpatient due to significant O2 needs, possible transfer to the floor later today
[2017-05-20] MEDS: Mometasone/Formoter 100/5 MDI INH SCH ×2 (09:30→19:48)
[2017-05-20] MEDS ORDERED: Spiriva Inhaler DEVICE* 1 EACH DEVICE ONE (10:00)
[2017-05-20] MEDS ORDERED: Spiriva Inhaler DEVICE* 1 EACH DEVICE INH SCH (10:00)
[2017-05-20] MEDS: Enoxaparin(*) 40 MG/0.4 ML SYR SUBCUT SCH (14:44)
[2017-05-20] MEDS: Nicotine Patch Removal NOTE FOLLOW UP SCH (21:09)
[2017-05-21] MEDS: Montelukast Sodium TAB* 10 MG PO SCH (08:12)
[2017-05-21] MEDS: predniSONE TAB* 20 MG PO SCH (08:13)
[2017-05-21] MEDS: Nicotine PATCH 14 MG/24 HR* PATCH TRANSDERM SCH (08:13)
[2017-05-21] MEDS: Azithromycin TAB* 250 MG PO SCH (08:13)
[2017-05-21] MEDS: Mometasone/Formoter 100/5 MDI INH SCH (08:33)
[2017-05-21] MEDS ORDERED: Tiotropium CAP.INH* CAP.INH/18 MCG (USE ORDER SET !) INH SCH (09:00)
--- NOTE | 2017-05-21 10:26 | PN ---
Subjective Date of Service: 05/21/17 Interval History: Patient seen this morning. Says she feels close to baseline 10 in terms of her breathing. Coughing up clear sputum. Anxious to go home. Currently on 5L and says she is on 4L at home. Family History: Unchanged from Admission Social History: Unchanged from Admission Past Medical History: Unchanged from Admission Objective Active Medications: Acetaminophen (Tylenol Tab*) 650 mg PO Q6H PRN Albuterol/Ipratropium (Duoneb (Albuterol 2.5 Mg/Ipratropium 0.5 Mg)) 1 neb INH Q4H PRN Alprazolam (Xanax Tab*) 0.25 mg PO Q8H PRN Azithromycin (Zithromax Tab*) 500 mg PO DAILY [facility] Enoxaparin Sodium (Lovenox(*)) 40 mg SUBCUT Q24H [facility] Mometasone Furoate/Formoterol Fumar (Dulera 100/5 Mdi*) 2 puff INH BID [facility] Montelukast Sodium (Singulair Tab*) 10 mg PO DAILY [facility] Nicotine (Nicotine Inhaler*) 10 mg INH Q2H PRN Nicotine (Nicotine Patch 14 Mg/24 Hr*) 1 patch TRANSDERM DAILY [facility] Pharmacy Profile Note (Nicotine Patch Removal Note*) 1 note FOLLOW UP 2100 [facility] Prednisone (Deltasone Tab*) 20 mg PO DAILY [facility] Tiotropium [place] (Spiriva Cap.Inh*) 1 cap INH DAILY [facility] Vital Signs 05/20/17 05/20/17 05/20/17 10:49 11:00 11:08 Temperature Pulse Rate 69 71 73 Respiratory 24 24 24 Rate Blood Pressure 142/61 132/66 (mmHg) O2 Sat by Pulse 88 89 88 Oximetry 05/20/17 05/21/17 05/21/17 20:00 00:05 04:42 Temperature 97.5 F Pulse Rate 67 61 Respiratory 20 16 16 Rate Blood Pressure 143/64 151/70 (mmHg) O2 Sat by Pulse 95 98 Oximetry Oxygen Devices in Use Now: Nasal Cannula - 5L Appearance: Middle-aged, F, laying in bed in NAD Eyes: No Scleral Icterus Ears/Nose/Mouth/Throat: Mucous Membranes Moist Neck: NL Appearance and Movements; NL JVP Respiratory: Symmetrical Chest Expansion and Respiratory Effort, - - Scattered wheezing diffusely, good air movement B/L Cardiovascular: NL Sounds; No Murmurs; No JVD, RRR Abdominal: NL Sounds; No Tenderness; No Distention Lymphatic: No Cervical Adenopathy Extremities: No Edema Skin: No Rash or Ulcers Neurological: Alert and Oriented x 3 Result Diagrams: 05/20/17 05:15 05/20/17 05:15 Additional Lab and Data: . Microbiology and Other Data: . Assess/Plan/Problems-Billing Assessment: Acute on chronic hypoxic and hybercarbic respiratory failure 2/2 COPD exacerbation in a 56 yo F with hx of COPD on 4L NC, qhs BiPAP, tobacco abuse, HTN - Patient Problems (1) COPD exacerbation Current Visit: No Comment: Acute on chronic hypoxic and hypercarbic respiratory failure. Improving, weaned down to 5L this morning, close to home 4L. Will ambulate the patient this morning to monitor O2 sats and WOB. Continue PO Predisone, continue Azithromycin Day 5/5. Continue ATC nebs, duelra, singulair. Home BiPAP qhs. (2) HTN (hypertension) Current Visit: No Comment: Resume Amlodipine today, monitor BPs, can restart other anti-HTN on d/c (3) Tobacco abuse Current Visit: No Comment: NRT (4) DVT prophylaxis Current Visit: Yes Comment: Lovenox Status and Disposition: Inpatient due to significant O2 needs, improving, potential discharge today or tomorrow 05/22
[2017-05-21] MEDS ORDERED: amLODIPine TAB* 5 MG PO SCH (11:00)
[2017-05-21 11:54] VITALS: BP 145/66
[2017-05-21] MEDS: Enoxaparin(*) 40 MG/0.4 ML SYR SUBCUT SCH (12:00)
--- NOTE | 2017-05-22 05:21 | DS ---
CC: Dr. Castellano * DISCHARGE SUMMARY: DATE OF ADMISSION: 05/16/17 DATE OF DISCHARGE: 05/21/17 PRIMARY CARE PHYSICIAN: Dr. Castlelano. PRINCIPAL DISCHARGE DIAGNOSES: 1. Chronic obstructive pulmonary disease exacerbation. 2. [id number] combined hypoxic and hypercarbic respiratory failure. 3. Tobacco abuse. DISCHARGE MEDICATION REGIMEN: 1. Dulera two puffs inhaled two times daily. 2. Spiriva one capsule inhaled daily. 3. Prednisone 10 mg by mouth daily x5 days. 4. Albuterol two puffs inhaled every 4 hours as needed for shortness of breath or wheezing. 5. Albuterol one neb inhaled every 6 hours as needed for shortness of breath or wheezing. 6. Norvasc 5 mg by mouth daily. 7. Irbesartan 300 mg by mouth daily. 8. Hydrochlorothiazide 12.5 mg by mouth daily. STUDIES DONE DURING HOSPITALIZATION: Chest x-ray, impression: No evidence for acute findings. Transthoracic echocardiogram, inclusive of left ventricular chamber size mildly dilated. No left ventricular hypertrophy. Global left ventricular wall motion and contractility within normal limits. There is a normal left ventricular systolic function. There is an intermittent interventricular septal "bounce" of uncertain cause. Estimated ejection fraction of 55% to 60%. The left atrium is mildly dilated. The right ventricular chamber size and systolic function are within normal limits. Agitated saline bubble study is negative. There is trace tricuspid regurgitation. Unable to estimate the right ventricular systolic pressure. Compared to the prior study from 03/2016, the LVEF is now normal, the LA size is mildly dilated previously was [id number] and now unable to estimate the PA systolic pressure. HISTORY OF PRESENT ILLNESS AND HOSPITAL SUMMARY: Please see the full history and physical by Dr. Jayy Torres for full details. Briefly, Ms. Rubi is a 56- year- old female with severe COPD, on home 4L of oxygen and nocturnal BiPAP and continued tobacco abuse who presented to the hospital after she developed URI symptoms, which progressed to chest congestion and significant difficulties breathing. She was found to be in acute respiratory failure in the hospital and she was placed on BiPAP in the emergency department and admitted to the ICU. She was started on steroids and nebulizers and also received a 5-day course of azithromycin here in the hospital. She was transitioned from BiPAP to Vapotherm and then was subsequently able to be titrated down to 5L of oxygen. She was transitioned to p.o. prednisone and will be discharged with five additional days as well as a prescription for Spiriva and Dulera. She was counseled on smoking cessation and she will be discharged home, will follow up with her PCP as an outpatient. TIME SPENT: Total time spent on this discharge was 45 minutes. This is a summary of the hospitalization. Please see the full medical record for further details. [id number]/[facility] #: [id number] PATRICIO
== END 2017-05-21 15:40 | disposition home or self-care (01) | DRG 189 ==
LOC: ED 09:21 → MERGE 09:21 → ICU 11:50 → MED 05-20 16:36
PROVIDERS: ADMIT Internal Medicine Critical Care Medicine; ATTEND Hospitalist
PROC: 5A09457 Assistance with Respiratory Ventilation, 24-96 Consecutive Hours, Continuous Positive Airway Pressure (ICD-10-PCS; principal; 2017-05-16)
DX: J96.22 Acute and chronic respiratory failure with hypercapnia (principal); J44.1 Chronic obstructive pulmonary disease with (acute) exacerbation; J44.9 Chronic obstructive pulmonary disease, unspecified; I07.1 Rheumatic tricuspid insufficiency; J96.21 Acute and chronic respiratory failure with hypoxia; I10 Essential (primary) hypertension; M17.0 Bilateral primary osteoarthritis of knee; F17.210 Nicotine dependence, cigarettes, uncomplicated; J20.8 Acute bronchitis due to other specified organisms; E66.9 Obesity, unspecified; Z68.37 Body mass index [BMI] 37.0-37.9, adult; Z99.81 Dependence on supplemental oxygen; Z82.49 Family history of ischemic heart disease and other diseases of the circulatory system; Z72.89 Other problems related to lifestyle; Z88.8 Allergy status to other drugs, medicaments and biological substances
CPT/HCPCS: 36415; 36600; 71010; 80048; 80053; 81003; 82550; 82553; 82803; 83605; 83735; 83880; 84100; 84484; 85025; 85027; 85379; 85730; 86140; 87040; 87070; 87205; 87502; 87641; 93005; 93306; 94640; 94660; 94760; 96372; 99213; 99406; A9270-GY; G0463; J1650; J2920; J2930; J7512; J7644

== ENCOUNTER 2017-10-04 14:07 | Emergency (ER) | payer OTHER ==
[2017-10-04 14:22] VITALS: BP 140/70
--- NOTE | 2017-10-04 15:04 | UC ---
Abdominal Pain Female HPI - HPI Summary HPI Summary: Patient to urgent care today with 3 days of nausea vomiting diarrhea. No known fevers no illness exposures no one else at home with similar symptoms no recent travel no change in medications - History of Current Complaint Chief Complaint: UCGI Stated Complaint: VOMITING/DIARRHEA Time Seen by Provider: 10/04/17 14:53 Hx Obtained From: Patient ?: No Onset/Duration: Sudden Onset, Lasting Days - 3, Still Present Timing: Constant Severity Initially: Moderate Severity Currently: Moderate Pain Intensity: 7 Pain Scale Used: 0-10 Numeric Location: Diffuse Radiates: No Character: Aching, Colicy, Cramping Aggravating Factor(s): Food Alleviating Factor(s): Nothing Associated Signs and Symptoms: Positive: Blood in Stool - ??, Decreased Appetite , Nausea, Vomiting, Diarrhea Allergies/Adverse Reactions: Allergies Allergy/AdvReac Type Severity Reaction Status Date / Time hydroxychloroquine Allergy Unknown Verified 10/04/17 15:35 Reaction Details lisinopril Allergy Unknown Verified 10/04/17 15:35 Reaction Details PMH/Surg Hx/FS Hx/Imm Hx Previously Healthy: No Cardiovascular History: Hypertension Respiratory History: COPD - Surgical History Surgical History: Yes Surgery Procedure, Year, and Place: 1988 LOWER LEFT LUMBAR SURGERY, [place], [place]. LEFT BREAST BIOPSY-BENIGN - Family History Known Family History: Positive: Hypertension - Social History Occupation: Disabled Lives: With Family Alcohol Use: Occasionally Substance Use Type: None Smoking Status (MU): Current Every Day Smoker Type: Cigarettes Amount Used/How Often: 1/2 ppd Have You Smoked in the Last Year: Yes Household Exposure Type: Cigarettes Cessation Counseling: Patient Advised to Stop - Immunization History Most Recent Influenza Vaccination: 03/2017 Most Recent Tetanus Shot: up to date Most Recent Pneumonia Vaccination: none Review of Systems Constitutional: Negative Skin: Negative Eyes: Negative ENT: Negative Respiratory: Negative Cardiovascular: Negative Gastrointestinal: Negative, Abdominal Pain, Vomiting, Diarrhea, Nausea Genitourinary: Negative Motor: Negative Neurovascular: Negative Musculoskeletal: Negative Neurological: Negative Psychological: Negative Is Patient Immunocompromised?: No All Other Systems Reviewed And Are Negative: Yes Physical Exam Triage Information Reviewed: Yes Appearance: Ill-Appearing, Pain Distress, Obese Vital Signs: Initial Vital Signs Temp 98.8 F 10/04/17 14:19 Pulse 78 10/04/17 14:19 Resp 18 10/04/17 14:19 BP 140/70 10/04/17 14:19 Pulse Ox 98 10/04/17 14:19 Vital Signs Reviewed: Yes Eye Exam: Normal Eyes: Positive: Conjunctiva Clear ENT Exam: Normal ENT: Positive: Normal ENT inspection, Hearing grossly normal. Negative: Trismus , Muffled voice, Hoarse voice Dental Exam: Normal Neck exam: Normal Neck: Positive: Supple, Nontender, No Lymphadenopathy Respiratory Exam: Normal Respiratory: Positive: Chest non-tender, Lungs clear, Normal breath sounds, No respiratory distress, No accessory muscle use Cardiovascular Exam: Normal Cardiovascular: Positive: RRR, No Murmur, Pulses Normal, Brisk Capillary Refill Abdominal Exam: Other Abdomen Description: Positive: No Organomegaly, Soft, Distended, Other: - diffuse discomfort. Negative: CVA Tenderness (R), CVA Tenderness (L) Bowel Sounds: Positive: Present Musculoskeletal Exam: Normal Musculoskeletal: Positive: Strength Intact, ROM Intact, No Edema Neurological Exam: Normal Neurological: Positive: Alert, Muscle Tone Normal Psychological Exam: Normal Skin Exam: Normal Abd Pain Female Course/Dx - Course Course Of Treatment: Patient will be discharged from urgent care to go to the Emergency Department at [facility] for evaluation and higher level of care - Differential Dx/Diagnosis Provider Diagnoses: Acute nausea vomiting diarrhea, nicotine dependence, hypertension in poor control. Discharge - Sign-Out/Discharge Documenting (check all that apply): Discharge - Discharge Plan Condition: Guarded Disposition: HOME Patient Education Materials: Acute Abdominal Pain (DC), Hypertension (ED) Referrals: Alma Delia Castellano MD [Primary Care Provider] - 1 Week Additional Instructions: Nothing to eat or drink until you are seen and evaluated by the emergency department physician. Post report directly to the [facility] emergency department for evaluation and treatment of her abdominal pain - Billing Disposition and Condition Condition: GUARDED Disposition: HOME
== END 2017-10-04 15:10 | disposition home or self-care (01) ==
LOC: UCEAST 14:07
DX: R11.2 Nausea with vomiting, unspecified (principal); R19.7 Diarrhea, unspecified; I10 Essential (primary) hypertension; J44.9 Chronic obstructive pulmonary disease, unspecified; Z88.8 Allergy status to other drugs, medicaments and biological substances; F17.210 Nicotine dependence, cigarettes, uncomplicated
CPT/HCPCS: 99212; G0463

== ENCOUNTER 2018-01-04 17:08 | Emergency (ER) | payer OTHER ==
[2018-01-04 18:02] VITALS: BP 142/75
--- NOTE | 2018-01-04 18:10 | UC ---
Hand/Wrist HPI - HPI Summary HPI Summary: 57 yo female presents with left thumb pain s/p injury at work yesterday. 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 She had significant pain and reported it to HR - was able to move it okay at the time. Today has had more difficulty moving the finger and has had decreased ROM. Has not been taking ibuprofen or icing the area. Denies numbness or tingling. - History Of Current Complaint Chief Complaint: UCUpperExtremity Stated Complaint: HAND INJURY WC Time Seen by Provider: 01/04/18 18:04 Hx Obtained From: Patient Onset/Duration: Sudden Onset Severity Initially: Severe Severity Currently: Severe Pain Intensity: 9 Character Of Pain: Dull, Aching - Allergies/Home Medications Allergies/Adverse Reactions: Allergies Allergy/AdvReac Type Severity Reaction Status Date / Time hydroxychloroquine Allergy Unknown Verified 10/28/17 15:55 Reaction Details lisinopril Allergy Unknown Verified 10/28/17 15:55 Reaction Details PMH/Surg Hx/FS Hx/Imm Hx Previously Healthy: Yes Cardiovascular History: Hypertension Respiratory History: COPD, Asthma - Surgical History Surgical History: Yes Surgery Procedure, Year, and Place: 1988 LOWER LEFT LUMBAR SURGERY, [place], [place]. LEFT BREAST BIOPSY-BENIGN - Family History Known Family History: Positive: Hypertension - Social History Occupation: Employed Full-time Lives: With Family Alcohol Use: None Substance Use Type: None Smoking Status (MU): Current Every Day Smoker Type: Cigarettes Amount Used/How Often: 1/2 ppd Have You Smoked in the Last Year: Yes Household Exposure Type: Cigarettes - Immunization History Most Recent Influenza Vaccination: 03/2017 Most Recent Tetanus Shot: up to date Most Recent Pneumonia Vaccination: none Review of Systems Constitutional: Negative Skin: Negative Respiratory: Negative Cardiovascular: Negative Neurovascular: Negative Musculoskeletal: Other: - Left thumb pain Neurological: Negative Psychological: Negative All Other Systems Reviewed And Are Negative: Yes Physical Exam - Summary Physical Exam Summary: GENERAL: NAD. WDWN. SKIN: No rashes, sores, lesions, or open wounds. NECK: Supple. Nontender. No lymphadenopathy. CHEST: No accessory muscle use. Breathing comfortably and in no distress. CV: RRR. Without m/r/g. Pulses intact radial and ulnar. MSK: Left thumb: Moderate edema at base of thumb and thenar region. Moderate TTP. Unable to oppose due to pain. No snuffbox tenderness. NEURO: Alert. Sensations intact hand and all fingers. PSYCH: Age appropriate behavior. Triage Information Reviewed: Yes Vital Signs: Initial Vital Signs Temp 98 F 01/04/18 17:56 Pulse 74 01/04/18 17:56 Resp 15 01/04/18 17:56 BP 142/75 01/04/18 17:56 Pulse Ox 99 01/04/18 17:56 Hand/Wrist Course/Dx - Course Course Of Treatment: XR: IMPRESSION: POSSIBLE NONDISPLACED FRACTURE OF ONE OF THE SESAMOID ADJACENT TO THE DISTAL. FIRST METACARPAL. RECOMMEND CLINICAL CORRELATION FOR POINT TENDERNESS. Pt placed in thumb spica splint. Advised to take ibuprofen and RICE. F/u with Orthpedics. I had a long discussion with the patient that I will place her on light duty, but she will need clearance by Orthopedics to RTW without restrictions - pt was agreeable to this. - Differential Dx/Diagnosis Provider Diagnoses: Left thumb pain Discharge - Sign-Out/Discharge Documenting (check all that apply): Discharge/Admit/Transfer - Discharge Plan Condition: Stable Disposition: HOME Patient Education Materials: Swollen Joint (ED) Forms: *Work Release Referrals: Alma Delia Castellano MD [Primary Care Provider] - [facility] [Provider Group] - As Soon As Possible Additional Instructions: If you develop a fever, shortness of breath, chest pain, new or worsening symptoms - please call your PCP or go to the ED. Your blood pressure was high at todays visit. Please see your primary provider within 4 weeks for recheck and re-evaluation. 1) Rest, Ice, and elevate your hand to help with pain and swelling 2) Use the thumb splint as much as possible for comfort and stability 3) Please call Orthopedics at the number below to schedule a follow up appointment as soon as possible - Billing Disposition and Condition Condition: STABLE Disposition: Home
--- NOTE | 2018-01-04 18:52 | RAD ---
INDICATION: Pain crush injury, pain left thumb. TECHNIQUE: 4 views of the left hand were obtained. FINDINGS: The bones are normal alignment. There is a faint renal lucent line through one of the sesamoid bones adjacent to the distal first metacarpal possibly representing a nondisplaced fracture. No other fractures are seen. Joint spaces appear maintained. IMPRESSION: POSSIBLE NONDISPLACED FRACTURE OF ONE OF THE SESAMOID ADJACENT TO THE DISTAL FIRST METACARPAL. RECOMMEND CLINICAL CORRELATION FOR POINT TENDERNESS.
== END 2018-01-04 19:10 | disposition home or self-care (01) ==
LOC: UCEAST 17:08
DX: W20.8XXA Other cause of strike by thrown, projected or falling object, initial encounter (principal); Y93.89 Activity, other specified; Y92.89 Other specified places as the place of occurrence of the external cause; M79.645 Pain in left finger(s); Z88.3 Allergy status to other anti-infective agents; Z88.8 Allergy status to other drugs, medicaments and biological substances; I10 Essential (primary) hypertension; F17.210 Nicotine dependence, cigarettes, uncomplicated
CPT/HCPCS: 99211; G0463

== ENCOUNTER 2018-09-20 21:22 | Emergency (ER) | payer SELFPAY ==
--- OUTSIDE RECORDS SUMMARY | 2018-09-20 21:27 | XMS REPORT | Continuity of Care Document ---
:1960 External Reference #:[id number] Author Name Chandrika Maria PA-C Address [address] [place] [address] Care Team Providers Name Role Phone Alma Delia Castellano M.D. Care Team Information Health Care Facilities Inspector Unavailable Alma Delia Castellano M.D. Primary Care Physician Unavailable Payers Date Identification Numbers Payment Provider Subscriber Effective: 2018 Policy Number: [id number] [employer] Petra Rubi Group Number: [id number] Group Name: [id number] [place] [address] PayID: [id number] Advance Directives Description No Information Available Problems Date Description Provider Status Onset: 07/30/2018 Obstruction of Eustachian tube Gideon Pena M.D. Active Family History Date Family Member(s) Observation Comments Father Cancer Mother Uterine Cancer First Sister Uterine Cancer Social History Type Date Description Comments Sex Unknown Occupation [employer] Tobacco Use Start: Unknown Current Cigarette Smoker Cigarettes Daily 1-5 Tobacco Use Start: Unknown Never Smoked Cigars Smoking Status Reviewed: 07/29/18 Never Smoked Cigars Tobacco Use Start: Unknown End: current.no Unknown Smokeless Tobacco current.no ETOH Use Current Alcohol Use Occasionally Tobacco Use Start: Unknown Light tobacco smoker (10 or fewer cigarettes/day) Tobacco Use Start: Unknown Patient is a current smoker, smokes every day Allergies, Adverse Reactions, Alerts Description No Known Drug Allergies Medications Medication Date Status Form Strength Qnty SIG Indications Ordering Provider Ibuprofen Active Tablets 800mg 42tabs 1 by M26.621 Gideon barry M.D. times a day for to two weeks with food Irbesartan Active Tablets 30mg Unknown 000 Amlodipine Active Tablets 10mg Unknown Besylate 000 Chantix Active Tablets 1mg Unknown 000 Amoxicillin Hx Tablets 875mg 20tabs 875mg po 381.19 Ruparelia, 010 - bid Gil 018 Ciprodex Hx Suspension 0.3-0.1% 1units 4 Drops 381.19 Gideon Gomez - right Strominger Ear bid , M.DDave 018 For 5 days Floxin Hx Solution 0.3% 1Bottle 5 DRPS Gideon Gilbert - In Right Strominger Ear bid , M.DDave 007 Aleve Hx Unknown 007 - 019 Immunizations Description No Information Available Vital Signs Date Vital Result Comment 08/26/2018 1:55pm Weight 268.00 lb Weight 121.565 kg Height 69 inches 5'9" Height in cm's 175.3 cm BMI (Body Mass Index) 39.6 kg/m2 07/30/2018 3:24pm Weight 268.00 lb Weight 121.565 kg Height 69 inches 5'9" Height in cm's 175.3 cm BMI (Body Mass Index) 39.6 kg/m2 07/15/2018 1:27pm Weight 268.00 lb Weight 121.565 kg Height 69 inches 5'9" Height in cm's 175.3 cm BMI (Body Mass Index) 39.6 kg/m2 07/22/2007 3:16pm BP Systolic 146 mmHg BP Diastolic 82 mmHg Heart Rate 89 /min Respiratory Rate 16 /min 11/11/2006 9:49am BP Systolic 137 mmHg BP Diastolic 79 mmHg Heart Rate 72 /min Respiratory Rate 16 /min Results Description No Information Available Procedures Date Code Description Status 08/26/2018 53421 Tympanometry Completed 08/26/2018 36379 Comprehensive Audiogram Completed 07/30/2018 64570 Tympanostomy W/Tube Local Or Topical Anes. Completed 07/15/2018 29530 Tympanometry Completed 07/15/2018 10839 Comprehensive Audiogram Completed 09/12/2009 48709 Tympanostomy W/Tube Local Or Topical Anes. Completed 08/30/2009 48729 Tympanometry Completed 08/30/2009 72663 Comprehensive Audiogram Completed 07/15/2009 03257 Comprehensive Audiogram Completed 07/15/2009 50483 Tympanometry Completed 12/30/2006 94504 Tympanometry Completed 12/30/2006 79760 Tympanometry Completed 12/30/2006 05701 Comprehensive Audiogram Completed 12/30/2006 28777 Comprehensive Audiogram Completed 11/21/2006 38141 Tympanostomy W/Tube Local Or Topical Anes. Completed 11/11/2006 62287 Tympanometry Completed 11/11/2006 04922 Comprehensive Audiogram Completed Encounters Type Date Location Provider Dx Diagnosis Office Visit 07/15/2018 [facility],After Gideon Adrian H68.101 Unspecified 2:15p 07/01/07 Nikolai Pena obstruction of Eustachian tube, right ear H92.01 Otalgia, right ear M26.621 Arthralgia of right temporomandibular joint H90.3 Sensorineural hearing loss, bilateral Office Visit 08/30/2009 3:30p [facility],After Gideon Adrian 381.19 Otitis Media 07/01/07 Nikolai Pena Chronic Serous Other Office Visit 07/15/2009 1:30p [facility],After Gil Sharpe 381.19 Otitis Media 07/01/07 Chronic Serous Other 381.81 Dysfunction Of Eustachian Tube Office Visit 07/22/2007 3:00p Jessica,After 07/01/07 Wes 381.19 Otitis Media [employer] Chronic Serous Other 380.10 Otitis Externa Acute Office Visit 12/30/2006 11:30a Jessica,Bright Adrian 381.19 Otitis Media 07/01/07 Nikolai Pena Chronic Serous Other Office Visit 12/30/2006 11:10a Jessica,Bright Flores.19 Otitis Media 07/01/07 Nikolai Pena Chronic Serous Other Office Visit 11/11/2006 10:15a Jessica,Bright Adrian 381.19 Otitis Media 07/01/07 Nikolai Pena Chronic Serous Other 389.2 Hearing Loss, Mixed/Conductive & Sensorineural Plan of Treatment Future Appointment(s):02/25/2019 1:30 pm - Chandrika Maria PA-C at [place],After
--- OUTSIDE RECORDS SUMMARY | 2018-09-20 21:27 | XMS REPORT | Continuity of Care Document ---
:1960 External Reference #:[id number] Author Name PhillipCecilia burr Care Team Providers Name Role Phone Alma Delia Castellano MD Primary Care Physician Unavailable Payers Date Identification Numbers Payment Provider Subscriber Effective: 2012 Policy Number: [id number] [facility] Sean Rubi Group Number: [id number] [address] PayID: [id number] [place] [address] Onset: 2017 Policy Number: [id number] [facility] Petra Rubi PayID: [id number] [address] [address] [place] [address] Advance Directives Description No Information Available Problems Date Description Provider Status Onset: 01/07/2013 Psoriasis with arthropathy Jeremy Parikh M.D. Active Onset: 01/07/2013 Psoriasis Jeremy Parikh M.D. Active Onset: 01/07/2013 Immunological Findings Nonspecified Jeremy Parikh M.D. 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 Onset: 05/15/2016 Chronic obstructive lung disease Lolita Teran MD Active Onset: 05/15/2016 Disturbance in sleep behavior Lolita Teran MD Active Onset: 05/15/2016 Obesity Lolita Teran MD Active Onset: 06/12/2016 Obstructive sleep apnea syndrome Lolita Teran MD Active Onset: 06/12/2016 Tobacco user Lolita Teran MD Active Onset: 08/30/2016 Morbid obesity Lolita Teran MD Active Family History Date Family Member(s) Observation Comments Father due to Cancer, Lung () Mother Hypertension Social History Type Date Description Comments Sex Unknown Lives With Family Occupation Currently Working Tobacco Use Start: Unknown Current Cigarette Smoker 5-10 Cigarettes Daily Smoking Status Reviewed: 08/27/18 Current Cigarette Smoker 5-10 Cigarettes Daily ETOH Use Rarely consumes alcohol Tobacco Use Start: Unknown Patient is a current 6 per day currently smoker, smokes every Started smoking at day [age] years old; most was 2 1/2 PPD x 10 years Recreational Drug Use Denies Drug Use Exercise Type/Frequency Exercises regularly Walking daily Allergies, Adverse Reactions, Alerts Date Description Reaction Status Severity Comments 06/12/2013 Hydroxychloroquine severe rash in the hands and Active feet 01/07/2013 NKDA Inactive Medications Medication Date Status Form Strength Qnty SIG Indications Ordering Provider Anoro Ellipta 08/27 Active Aerosol 62.5-25mc 60uni 1 puff J44.9 g/Inh ts inhaled Beatriz, daily. 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 06/04 Active Misc 1unit please use G47.00 s o2 at MD Jeff[facility] 2l/min during exertion, pls provide pt with portable O2 concentrat or Irbesartan 05/14 Active Tablets 300mg 1 by mouth every day Proair HFA 05/14 Active Aerosol 108(90Bas 2 puffs by e) mouth mcg/Act every 4 hours as needed Albuterol 05/14 Active as needed/dir ected (not sure of dose) Flovent HFA 05/14 Active Aerosol 110mcg/Ac 24uni Inhale 2 t ts Puffs By MD Jeffry Mouth Twice Daily Hydrochlorothiazid 00 Active Tablets 12.5mg 1 by mouth Unknown e every day Chantix Starting Active Tablets 0.5mg X as Unknown Month 11 & 1 mg directed X 42 Amlodipine Active Tablets 10mg 1 by mouth Unknown Bes every day Diclofenac Sodium 06/12 Hx Tablets 75mg 60tab 1 tab by 696.[address] winsome Parikh M.D. - twice a Proair HFA 01/07 Hx Aerosol 108(90Bas 1unit 2 puffs po e) s q4h prn Ordering - mcg/Act Provider 05/15 Lisinopril 01/07 Hx Tablets 10mg 1 po qd Ordering - Provider 05/14 Flovent Diskus 01/07 Hx Aerosol 100mcg/Bl 1unit 1 puff bid ist s Ordering - Provider 05/14 Multivitamins 01/07 Hx Capsules 30cap 1 capsule s lea;y Ordering - Provider 05/14 Hydroxychloroquine 01/07 Hx Tablets 200mg 180ta 1 po bid 696.0 Jeremy Sulfate ana maría Parikh M.D. - 06/12 Diuretic-Name Hx 1 po daily Unknown Unknown /0000 - 08/26 BP Medication Hx Tablet 1 po daily Unknown /0000 - 08/26 Spiriva Handihaler Hx Capsules 18mcg 1 unit Unknown /0000 inhalation - daily 08/27 Advair Diskus Hx Aerosol 250-50mcg 1 puff by Unknown /0000 /Dose mouth - twice a Immunizations Description No Information Available Vital Signs Date Vital Result Comment 08/27/2018 10:23am Height 69 inches 5'9" Weight 262.00 lb Heart Rate 74 /min BP Systolic Sitting 130 mmHg Lue large cuff BP Diastolic Sitting 60 mmHg Lue large cuff Respiratory Rate 18 /min O2 % BldC Oximetry 94 % On Ra BMI (Body Mass Index) 38.7 kg/m2 02/19/2018 10:45am Height 69 inches 5'9" Weight 260.00 lb Heart Rate 76 /min BP Systolic Sitting 124 mmHg BP Diastolic Sitting 82 mmHg Respiratory Rate 14 /min O2 % BldC Oximetry 93 % BMI (Body Mass Index) 38.4 kg/m2 01/30/2018 1:34pm Height 69 inches 5'9" Weight 265.75 lb Heart Rate 80 /min BP Systolic Sitting 138 mmHg Lue lg cuff BP Diastolic Sitting 64 mmHg Lue lg cuff Pain Level 3 BMI (Body Mass Index) 39.2 kg/m2 08/21/2017 11:04am Height 69 inches 5'9" Weight 254.00 lb Heart Rate 76 /min BP Systolic Sitting 112 mmHg BP Diastolic Sitting 72 mmHg Respiratory Rate 14 /min O2 % BldC Oximetry 92 % BMI (Body Mass Index) 37.5 kg/m2 01/08/2017 3:43pm Height 69 inches 5'9" Weight 252.00 lb Heart Rate 92 /min BP Systolic 142 mmHg BP Diastolic 64 mmHg Respiratory Rate 16 /min Pain Level 9 BMI (Body Mass Index) 37.2 kg/m2 08/30/2016 12:56pm Heart Rate 79 /min BP Systolic Sitting 138 mmHg BP Diastolic Sitting 82 mmHg Respiratory Rate 22 /min O2 % BldC Oximetry 87 % 07/19/2016 7:51am Height 69 inches 5'9" Weight 255.00 lb Heart Rate 76 /min BP Systolic 130 mmHg BP Diastolic 80 mmHg Respiratory Rate 14 /min O2 % BldC Oximetry 84 % BMI (Body Mass Index) 37.7 kg/m2 06/12/2016 8:02am Height 69 inches 5'9" Weight 255.00 lb Heart Rate 83 /min BP Systolic 142 mmHg BP Diastolic 80 mmHg Respiratory Rate 14 /min O2 % BldC Oximetry 91 % 4 liters BMI (Body Mass Index) 37.7 kg/m2 05/15/2016 8:03am Height 69 inches 5'9" Weight 255.00 lb Heart Rate 74 /min BP Systolic Sitting 158 mmHg BP Diastolic Sitting 94 mmHg Respiratory Rate 20 /min O2 % BldC Oximetry 87 % BMI (Body Mass Index) 37.7 kg/m2 Neck Circumference in inches 14.5 06/12/2013 11:04am Height 69 inches 5'9" Weight 219.25 lb Heart Rate 76 /min BP Systolic Sitting 154 mmHg BP Diastolic Sitting 88 mmHg BMI (Body Mass Index) 32.4 kg/m2 01/07/2013 2:04pm Height 69 inches 5'9" Weight 232.00 lb Heart Rate 84 /min BP Systolic Sitting 134 mmHg BP Diastolic Sitting 82 mmHg BMI (Body Mass Index) 34.3 kg/m2 Results Test Date Facility Test Result H/L Range Note CBC Auto Diff 01/07/2013 [facility] White Blood 14.0 10^3/uL High 4.8-10.[address] [place] [address] [phone] Red Blood Count 5.00 10^6/uL 4.0-5.4 Hemoglobin 15.6 g/dL 12.0-16.0 Hematocrit 48 % High 35-47 Mean Corpuscular Volume 96 fL 80-97 Mean Corpuscular Hemoglobin 31 pg 27-31 Mean Corpuscular HGB Conc 33 g/dL 31-36 Red Cell Distribution Width 15 % 10.5-15 Platelet Count 318 10^3/uL 150-450 Mean Platelet Volume 9 um3 7.4-10.4 Abs Neutrophils 10.1 10^3/uL High 1.5-7.7 Abs Lymphocytes 2.7 10^3/uL 1.0-4.8 Abs Monocytes 0.7 10^3/uL 0-0.8 Abs Eosinophils 0.3 10^3/uL 0-0.6 Abs Basophils 0.1 10^3/uL 0-0.2 Abs Nucleated RBC 0.01 10^3/uL Granulocyte % 72.3 % 38-83 Lymphocyte % 19.6 % Low 25-47 Monocyte % 4.9 % 1-9 Eosinophil % 2.2 % 0-6 Basophil % 1.0 % 0-2 Nucleated Red Blood Cells % 0.1 Laboratory test 01/07/2013 [facility] Erythrocyte Sed 8 mm/Hr 0-[address] [place] [address] [phone] Comp Metabolic 01/07/2013 [facility] Sodium 138 mmol/L 133- 145 Panel [address] [place] [address] [phone] Potassium 4.4 mmol/L 3.5-5.0 Chloride 105 mmol/L 101-111 Co2 Carbon Dioxide 26.0 mmol/L 22-32 Anion Gap 7.0 mmol/L 2-11 Glucose 92 mg/dL 70-100 Blood Urea Nitrogen 9 mg/dL 6-24 Creatinine 0.60 mg/dL 0.50-1.40 BUN/Creatinine Ratio 15.0 8-20 Calcium 9.6 mg/dL 8.1-9.9 Total Protein 6.5 g/dL 6.2-8.1 Albumin 3.9 g/dL 3.6-5.4 Globulin 2.6 g/dL 2-4 Albumin/Globulin Ratio 1.5 1-3 Total Bilirubin 0.7 mg/dL 0.4-1.5 Alkaline Phosphatase 102 U/L 30-110 Alt 13 U/L Low 14-54 Ast 20 U/L 12-42 Egfr Non- 104.2 >60 Egfr 134.0 >60 1 Laboratory test 01/07/2013 [facility] C Reactive < 0.5 mg/dL Less than finding [address] Protein 0.5 [place] [address] [phone] Hla B27 01/07/2013 [facility] Hla B27 Negative [address] [place] [address] [phone] Hla B27 Interp See Comment 3 Laboratory test 01/07/2013 [facility] Marta Screen Negative Negative [address] [place] [address] [phone] Anti Double Stranded Dna Negative Negative 1 Because ethnic data is not always readily available, this report includes an eGFR for both -Americans and non- Americans. The National Kidney Disease Education Program (NKDEP) does not endorse the use of the MDRD equation for patients that are not between the ages of 18 and 70, are , have extremes of body size, muscle mass, or nutritional status, or are non- or non-. According to the National Kidney Foundation, irrespective of diagnosis, the stage of the disease is based on the level of kidney function: Stage Description GFR(mL/min/1.73 m(2)) 1 Kidney damage with normal or decreased GFR 90 2 Kidney damage with mild decrease in GFR 60-89 3 Moderate decrease in GFR 30-59 4 Severe decrease in GFR 15-29 5 Kidney failure <15 (or dialysis) 2 -- REFERENCE VALUE -- Not Applicable 3 RESULT: HLA-B27 antigen was not detected. Method: Flow Cytometry Test Performed by: [place] [id number] Manufacturing Engineering Technologist: Walker Cesar III, M.D. 4 The above MARTA screen is designed for the detection of antibodies to extractable nuclear antigen (MARTA) in human serum. It is a combination test for the detection of antibodies to INTELLIGENCE APPLICATIONS, Sm, SS-A (Ro), and SS-B (La) nuclear antigens. Procedures Date Code Description Status 05/17/2017 93813 ECHO Transthorasic Realtime 2D W Doppler & Color Flow Hosp Completed 01/08/2017 49033 Pulmonary Stress Test Simple Completed 07/02/2016 51982 Polysomnography Sleep Staging 4+ Parameters W/Cpap Completed 06/05/2016 54399 Polysomnography Sleep Staging 4+ Parameters Completed 05/31/2016 31308 Diffusing Capacity Completed 05/31/2016 28372 Plethysmography Determination Lung Volumes & Per Airway Completed Resist 05/31/2016 41342 Pulmonary Stress Test Simple Completed 05/31/2016 47436 Pulmonary Function><Bronchodil Completed 03/01/2016 72892 ECHO Transthoracic, Real-Time 2D With Doppler And Color Completed Flow Encounters Type Date Location Provider Dx Diagnosis Office Visit 02/19/2018 Pulmonology And Ritu Ruvalcaba.Reon Chronic obstructive 10:45a Sleep Services Of pulmonary disease, Metal Technician unspecified G47.33 Obstructive sleep apnea (adult) (pediatric) E66.01 Morbid (severe) obesity due to excess calories Office Visit 01/30/2018 1:30p Orthopedic Mallorie S67.02xA Crushing injury Services Of Nikolai Kimball of left thumb, C.M.A. initial encounter S67.02xA Crushing injury of left thumb, initial encounter Office Visit 08/21/2017 11:30a Pulmonology And Lolita Girard44.9 Chronic Sleep Services Of MD anum Teran Metal Technician pulmonary disease, unspecified G47.33 Obstructive sleep apnea (adult) (pediatric) Z12.2 Encntr screen for malignant neoplasm of respiratory organs Office Visit 05/21/2017 [facility] Quique J96.21 Acute and chronic 10:35a Assoc,supriya Coon MD respiratory Hospitalists failure with hypoxia J96.22 Acute and chronic respiratory failure with hypercapnia J44.1 Chronic obstructive pulmonary disease w (acute) exacerbation Z72.0 Tobacco use Office Visit 05/20/2017 [place] Bethanie Lei J96.21 Acute and chronic 10:35a Assoc,supriya Coon MD respiratory Hospitalists failure with hypoxia J96.22 Acute and chronic respiratory failure with hypercapnia J44.1 Chronic obstructive pulmonary disease w (acute) exacerbation Z72.0 Tobacco use Office Visit 05/16/2017 [place] Bethanie Fragoso J96.21 Acute and chronic 10:33a Assoc,supriya Torres D.O. respiratory Hospitalists failure with hypoxia J96.22 Acute and chronic respiratory failure with hypercapnia J44.1 Chronic obstructive pulmonary disease w (acute) exacerbation Z72.0 Tobacco use Office Visit 01/08/2017 3:30p Pulmonology And Lolita J44.1 Chronic Sleep Services Of MD Jeffry obstructive Metal Technician pulmonary disease w (acute) exacerbation G47.33 Obstructive sleep apnea (adult) (pediatric) R09.02 Hypoxemia R60.9 Edema, unspecified F17.210 Nicotine dependence, cigarettes, uncomplicated E66.01 Morbid (severe) obesity due to excess calories Z68.37 Body mass index (BMI) 37.0-37.9, adult Office Visit 08/30/2016 1:00p Pulmonology And Lolita J44.9 Chronic Sleep Services Of MD Jeffry obstructive Metal Technician pulmonary disease, unspecified G47.33 Obstructive sleep apnea (adult) (pediatric) F17.210 Nicotine dependence, cigarettes, uncomplicated E66.01 Morbid (severe) obesity due to excess calories Office Visit 07/19/2016 7:45a Pulmonology And Lolita J44.9 Chronic Sleep Services Of MD Jeffry obstructive Metal Technician pulmonary disease, unspecified G47.33 Obstructive sleep apnea (adult) (pediatric) Office Visit 06/12/2016 7:45a Pulmonology And Lolita G47.33 Obstructive sleep Sleep Services Of MD Jeffry apnea (adult) Metal Technician (pediatric) J44.9 Chronic obstructive pulmonary disease, unspecified F17.210 Nicotine dependence, cigarettes, uncomplicated E66.09 Other obesity due to excess calories Office Visit 05/15/2016 Pulmonology And Lolita F17.210 Nicotine 8:00a Sleep Services Of MD Jeffry dependence, Metal Technician cigarettes, uncomplicated J44.9 Chronic obstructive pulmonary disease, unspecified G47.9 Sleep disorder, unspecified E66.09 Other obesity due to excess calories Z68.37 Body mass index (BMI) 37.0-37.9, adult Office Visit 12/04/2015 9:12a [facility] J44.1 Chronic Assoc,supriya Fernandez M.D. obstructive Hospitalists pulmonary disease w (acute) exacerbation I10 Essential (primary) hypertension Office Visit 12/03/2015 9:12a [facility] J44.1 Chronic Assoc,supriya Fernandez M.D. obstructive Hospitalists pulmonary disease w (acute) exacerbation I10 Essential (primary) hypertension Office Visit 06/12/2013 11:00a Rheumatology Jeremy Parikh, 696.0 Psoriatic Services Of [facility] Galindo.D. 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 Please stop taking Spiriva and start using Anoro instead. Continue taking Flovent twice daily as usual and using your rescue inhaler (ProAir) as needed.G47.33 Obstructive sleep apnea (adult) (pediatric)F17.210 Nicotine dependence, cigarettes, tlmflxjhveapvB80.02 LjgupxaouD42.38 Body mass index (BMI) 38.0-38.9, adult
--- OUTSIDE RECORDS SUMMARY | 2018-09-20 21:27 | XMS REPORT | Continuity of Care Document ---
:1960 External Reference #:[id number] Author Name Alma Delia Castellano M.D. Address [address] [place] [address] Care Team Providers Name Role Phone Alma Delia Castellano Care Team Information Director Of Product Management Unavailable Alma Delia Castellano Primary Care Physician Unavailable Payers Date Identification Numbers Payment Provider Subscriber Effective: 2012 Policy Number: [id number] [facility] Sean Perez [employer] Group Number: [id number] [id number] Group Name: [facility] [place] [address] [place] [address] PayID: [id number] Advance Directives Description No Information Available Problems Date Description Provider Status Onset: 05/04/2011 Chronic obstructive lung disease Hernán Abdi M.D. Active Onset: 05/04/2011 Psoriasis Hernán Abdi M.D. Active Onset: 05/04/2011 Arthralgia of the ankle and/or Hernán Abdi M.D. Active foot Onset: 06/14/2011 Female climacteric state Hernán Abdi M.D. Active Onset: 07/19/2011 Tobacco user Hernán Abdi M.D. Active Onset: 07/19/2011 Joint derangement Hernán Abdi M.D. Active Onset: 10/14/2012 Essential hypertension Onofre Whitney Active Onset: 02/22/2015 Diverticulitis of colon Alma Delia Castellano M.D. Active Onset: 02/22/2015 Overweight Alma Delia Castellano M.D. Active Onset: 03/24/2015 Leukocytosis Alma Delia Castellano M.D. Active Onset: 03/24/2015 Vitamin D deficiency Alma Delia Castellano M.D. Active Onset: 09/08/2015 Influenza with non-respiratory Gideon Fitzpatrick M.D. Active manifestation Onset: 04/10/2016 Lymphedema Alma Delia Castellano M.D. Active Onset: 09/20/2016 Nicotine dependence, cigarettes, Alma Delia Castellano M.D. Active with other nicotine-induced disorders Onset: 11/22/2017 Body mass index 40+ - severely Alma Delia Castellano M.D. Active obese Family History Date Family Member(s) Observation Comments Father due to Lung Cancer () - age 60. smoker. drinker. 01/04/95. Mother Cervical Cancer hysterectomy. HTN. Colon Cancer/diverticulosis? - s/p colostomy bag. Daily O2. Mother December 2014. - dt copd. Number of Children None--unsuccessful at insemination First Sister Hysterectomy not sure why Second Sister healthy. Text Input 2 Brothers Well, as Far as She Knows Social History Type Date Description Comments Sex Unknown Marital Status Patient is Living Situation Lives with spouse Sleep Typically sleeps 7 hours a night. 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 Trying to quit - 1/2 ppd most days. Trying to quit. 2014 - 1 ppd. 1/2 ppd (03/16.) 6/day 04/10/16. ETOH Use Social Alcohol I glass wine per week. Stopped drinking heavy age 28. Tobacco Use Start: Unknown Patient is a current cut down to 3 smoker, smokes every day cig/day on Chantix Smoking Status Reviewed: 04/11/18 Patient is a current cut down to 3 smoker, smokes every day cig/day on Chantix Exercise deep knee bends. Walks Type/Frequency Current at work. Allergies, Adverse Reactions, Alerts Date Description Reaction Status Severity Comments 03/23/2013 Hydroxychloroquine Contact dermatitis, Urticaria, Active for arthritis 04/17/2013 Lisinopril cough Active cough Medications Medication Date Status Form Strength Qnty SIG Indications Ordering Provider Chantix 08/29 Active Tablets 1mg 60tabs 1 by F17.200 Alma Delia L. /2017 mouth Gray, twice M.D. daily Chantix Starting 01/23 Active Tablets 0.5mg X 1tabs take as F17.200 Alma Delia L. Month 11 & 1 mg directed Gray, X 42 . 0.5 mg M.D. daily x3 0.5 mg twice daily days 4-7. 1 mg by mouth twice daily after that. Advair Diskus 07/19 Active Aerosol 250-50mcg 60units one Alma Delia L. /2017 /Dose inhalati Gray, on twice M.D. daily Hydrochlorothiaz 12/27 Active Capsules 12.5mg 30caps 1 by I10 Chelsey Corry pancho mouth Rigoberto, every FOLDER MACHINE day Amlodipine 12/27 Active Tablets 10mg 30tabs take one I10 Alma Delia LDave Besylate tablet Gray, by mouth M.D. once daily Ketoconazole 04/10 Active Cream 2% 45gm apply B35.4 Alma Delia L. thin Gray, layer M.D. under both breasts area twice daily Proair HFA 02/13 Active Aerosol 108(90Bas 8.5unit Inhale 2 Nikci Dupree e) s Puffs By BARRIE Suero mcg/Act Mouth Every 6 Hours as Needed For Shortnes s Of Breath Naproxen 11/15 Active Tablets 500mg 60tabs take one M54.32 tablet Dinah, by mouth TACK MAKER every 12 hours with food Irbesartan 12/01 Active Tablets 300mg 90tabs take 1 I10 Alma Delia L. tablet Gray, by mouth M.D. once daily Albuterol 11/27 Active Nebulizer 1.25mg/3M 360unit Use One Alma Delia Win L s Vial In Gray, Nebulize M.D. r Every 4 Hours as Needed Spiriva Active Capsules 18mcg 30caps inhale Alma Delia Win Handihaler /0000 contents Gray, one of M.D. capsule by mouth daily Azithromycin 04/11 Hx Tablets 250mg 6tabs 2 by J20.9 Nicki Leia mouth Suero, FOLDER MACHINE - today. 1 04/18 by mouth daily x 4 Medrol 04/11 Hx TBPK 4mg 1units use as J20.9 Nicki Leia directed BARRIE Suero - 04/18 Cheratussin ac 04/11 Hx Syrup 100-10mg/ 120ml 5-10ml J20.9 Nicki 5ML every 8 Pio FOLDER MACHINE - hours as 04/25 needed - do not drive when taking this medicati on - causes drowsine ss Azithromycin 11/22 Hx Tablets 250mg 6tabs 2 by J20.9 Alma Delia LDave mouth Gray, - today. 1 M.D. 01/23 by mouth daily x 4 Medrol 11/22 Hx TBPK 4mg 1units use as J20.9 Alma Delia L. macrina Castellano - M.D. 02/26 Easy Pulse 12/27 Hx One Use as J44.9 Alma Delia Win Poc-. directed Gray - . M.D. 11/21 Amlodipine 11/08 Hx Tablets 5mg 90tabs 1 by I10 Alma Delia Win Besylate mouth Gray, - every M.D. Stiolto Respimat 09/20 Hx Aerosol 2.5-2.5mc 4units inhale Alma Delia Win g/Act two Gray, - puffs M.D. 11/21 daily Hydrochlorothiaz 03/07 Hx Capsules 12.5mg 30caps 1 by Tosin pancho mouth Van, - every TACK MAKER 09/20 day x prn swelling Keflex 03/02 Hx Capsules 500mg 20caps 1 by Tosin mouth Van, - twice a TACK MAKER 04/09 day x days Cyclobenzaprine 11/15 Hx Tablets 5mg 60tabs 1 po q M54.32 Sarah HCL 8h Dinah, - during TACK MAKER 11/21 the and 2 by mouth at bedtime as needed Tramadol HCL 11/15 Hx Tablets 50mg 60tabs 1-2 M54.32 Sarah /2015 every Dinah, - 12h as TACK MAKER 11/21 pain Flovent HFA 09/07 Hx Aerosol 110mcg/Ac 12gm take 2 t puffs Katieimawily, - twice a M.D. Tamiflu 09/07 Hx Capsules 75mg 10caps use twice a Amari, - day x 5 M.D. Medrol (Eyad) 09/07 Hx Tablets 4mg 1tabs use as directed Amari, - M.D. 11/15 Vitamin D 05/05 Hx Capsules 01989Yuhr 8caps take 1 Alma Delia L. (Ergocalciferol) capsule Gray, - by mouth M.D. 09/07 weekly for 8 weeks. Asmanex 11/10 Hx Aerosol 220mcg/In 1units one Deb Twisthaler h inhalati BARRIE Diego Metered Doses - on twice 09/07 a rinse mouth after use Irbesartan 04/17 Hx Tablets 150mg 30tabs Take One 401.9 Alma Delia L. Tablet Gray, - By Mouth M.D. 12/01 Day Lisinopril 04/01 Hx Tablets 40mg 90tabs 1 po qd 401.9 Van, - [facility] 04/17 Work Note 04/01 Hx may 465.9 return [facility], - to work [facility] 04/1704/03/13 no restrict ions Levaquin 03/27 Hx Tablets 750mg 5tabs 1 po 496 qday x 5 [facility], - days [facility] 04/01 Work Note 03/26 Hx Yoseph was seen Van, - in our [facility] 04/0103/27/13 due to illness Please excuse until further notice Robitussin ac 03/23 Hx 4Oz 1-2 tsp po q 4 [place], - hrs prn [facility] 04/01 Lisinopril 10/14 Hx Tablets 20mg 90tabs 1 po qd 401.9 Makenna Celeste, - [facility] 04/01 Proventil HFA 10/09 Hx Aerosol 108(90Bas 1units 2 puffs J44.9 Alma Delia LDave e) every 6 Gray, - mcg/Act hours as M.DDave 05/15 shortnes s of breath Prednisone 10/09 Hx Tablets 10mg 20tabs 4 tabs 496 po qd x Celeste, - 2; 3 Afnp-C 10/13 tabs po /2012 x 2, 2 tab qd x 2, 1 tab qd x 2 Lisinopril 10/09 Hx Tablets 10mg 30tabs 1 po qd 401.9 Celeste, - [facility] 10/14 Bupropion HCL XL 06/14 Hx Tablets ER 150mg 60tabs 1 tab Hernán Grant 24HR qam x 1 Vaishali Abdi M.D. 04/04 then tabs po qam Albuterol 06/05 Hx Nebulizer (2.5mg/3M 1Box use in L) 0.083% nebulize Celeste - r as Afnp-C 11/27 Flovent HFA 04/06 Hx Aerosol 220mcg/Ac 1units 1 puff t twice a Johnathon FOLDER MACHINE - day 11/10 Biaxin 09/10 Hx Tablets 500mg 20tabs 1 po bid x10 [facility] 09/10 [facility] [place] Nebulizer Set Up 09/10 Hx 1units use for Makenna And asthma Celeste - Nargisnp-C 09/20 Levaquin 09/10 Hx Tablets 500mg 10tabs 1 po qd Gideon Bryant /Vaishali Gonzalez M.D. 09/24 Albuterol 09/10 Hx Nebulizer 1.25mg/3M 1BX use Gideon Ricks L q4hour Vaishali Fitzpatrick M.D. 06/05 Prednisone 09/10 Hx Tablets 20mg 18tabs 3 x 3 Radha days 2 Arikorf, - x 3 days Afnp-C 04/01 1 x 3 days Work Excuse 09/10 Hx unable Gideon Bryant /2008 to work [employer], - for 5 M.D. 10/07 - days Naproxen 07/24 Hx Tablets 500mg 40tabs 1 po bid Alma Delia L. prn pain Gray, - M.D. 10/09 Work Excuse 07/24 Hx unable Gregory T. /2008 to work [employer], - 07/24-2 M.D. 08/04 6 due to wrist injury. Prednisone 06/07 Hx Tablets 10mg 30tabs 4 t po x Radha 3 days, Christa, - 3tabs po Afnp-C 06/19 x 3 days, 2 t po x 3 days, 1 t po x 3 days, and D/c take with food Flovent Hfa 03/19 Hx Aerosol 110mcg/Ac 1units 1 puff Makenna t bid Celeste, - Afnp-C 04/06 Biaxin 09/18 Hx Tablets 500mg 20tabs 1 po bid 496 Radha x 10D Christa, - Afnp-C 06/17 Proventil HFA 09/18 Hx Aerosol 108mcg/Ac 1units 2 puffs 496 Makenna t q6h prn Celeste, - robert Afnp-C 10/09 s breath Robitussin A-C 09/18 Hx 60Z 1-2 tsp 496 Gideon J. po q4h Amari, - prn M.D. 08/04 cough Symbicort 09/18 Hx Aerosol 160-4.5 Sample 2 puff 496 bid Dinah, - TACK MAKER 03/19 Dovonex Scalp 05/20 Hx .005% 60ml Apply To 696.1 Sarah /2006 Lesions Dinah, - And Rub TACK MAKER 09/18 In Twice /2007 A Week Dovonex 05/20 Hx Cream 0.005% 60Gram Apply 696.1 Sarah /2006 bid Dinah, - TACK MAKER 09/18 Betamethasone 05/20 Hx .1% 60gm Apply To 696.1 Sarah Valerate Cream /2006 Affected Dinah, - Areas qd TACK MAKER 09/18 - bid Biaxin 09/13 Hx Tablets 500mg 20tabs 1 PO bid Christa, - Afnp-C 09/23 Dulera Hx Aerosol 100-5mcg/ 13gm 2 puff Chelsey C. /0000 Act twice a Rigoberto, - day FOLDER MACHINE 07/19 Immunizations CPT Code Status Date Vaccine Lot # [id number] Given 04/11/2018 Tdap Tetanus, W Pertussis [id number] Given 04/11/2017 Influenza Vac, Quadrivalent, Slit Virus, Im [id number] 58597 Given 04/10/2016 Influenza Vac, Quadrivalent, Slit Virus, Im [id number] Given 03/24/2015 Pneumococcal Immunization [id number] 00187 Given 03/24/2015 Influenza Vac, Quadrivalent, Slit Virus, Im [id number] 11890 Given 05/04/2013 Pneumococcal Conjugate Vacc-13 [id number] 02809 Given 04/17/2013 DO Not Use Split Influenza Virus Vaccine [id number] Given 05/04/2011 DO Not Use Split Influenza Virus Vaccine [id number] 44511 Given 04/06/2010 DO Not Use Split Influenza Virus Vaccine [id number] 94557 Given 11/01/2008 Tdap Tetanus, W Pertussis [id number] Vital Signs Date Vital Result Comment 08/26/2018 9:48am BP Systolic 136 mmHg BP Diastolic 84 mmHg Heart Rate 80 /min Body Temperature 97.8 F Respiratory Rate 20 /min Height 67 inches 5'7" Weight 268.00 lb BMI (Body Mass Index) 42.0 kg/m2 04/23/2018 9:45am BP Systolic 128 mmHg BP Diastolic 68 mmHg Heart Rate 64 /min Body Temperature 97.9 F Respiratory Rate 16 /min Height 67 inches 5'7" Weight 264.00 lb BMI (Body Mass Index) 41.3 kg/m2 04/11/2018 4:43pm BP Systolic 148 mmHg BP Diastolic 82 mmHg Heart Rate 78 /min Body Temperature 97.7 F Respiratory Rate 18 /min O2 % BldC Oximetry 94 % 3L in office, 5L at home Height 67 inches 5'7" Weight 264.00 lb BMI (Body Mass Index) 41.3 kg/m2 02/26/2018 1:30pm BP Systolic 122 mmHg BP Diastolic 64 mmHg Heart Rate 76 /min Body Temperature 97.9 F Respiratory Rate 20 /min Height 67 inches 5'7" Weight 264.12 lb BMI (Body Mass Index) 41.4 kg/m2 01/23/2018 8:25am BP Systolic 130 mmHg BP Diastolic 78 mmHg Heart Rate 72 /min Body Temperature 97.9 F Respiratory Rate 18 /min Height 67 inches 5'7" Weight 266.00 lb BMI (Body Mass Index) 41.7 kg/m2 11/22/2017 8:49am BP Systolic 150 mmHg BP Diastolic 74 mmHg Heart Rate 84 /min Body Temperature 98.1 F Height 67 inches 5'7" Weight 262.00 lb BMI (Body Mass Index) 41.0 kg/m2 08/28/2017 10:01am BP Systolic 128 mmHg BP Diastolic 78 mmHg Heart Rate 76 /min Body Temperature 98.4 F Respiratory Rate 16 /min Height 67 inches 5'7" Weight 256.38 lb BMI (Body Mass Index) 40.1 kg/m2 06/29/2017 9:26am BP Systolic 142 mmHg BP Diastolic 80 mmHg Heart Rate 80 /min Body Temperature 97.6 F Respiratory Rate 15 /min Height 67 inches 5'7" Weight 256.50 lb BMI (Body Mass Index) 40.2 kg/m2 05/29/2017 1:59pm BP Systolic 128 mmHg BP Diastolic 60 mmHg Heart Rate 90 /min Body Temperature 98.2 F Respiratory Rate 16 /min O2 % BldC Oximetry 94 % Height 67 inches 5'7" Weight 251.25 lb BMI (Body Mass Index) 39.3 kg/m2 04/11/2017 4:07pm BP Systolic 130 mmHg BP Diastolic 70 mmHg Heart Rate 68 /min Body Temperature 97.9 F Respiratory Rate 18 /min Height 67 inches 5'7" Weight 259.00 lb BMI (Body Mass Index) 40.6 kg/m2 02/07/2017 2:54pm BP Systolic 130 mmHg BP Diastolic 70 mmHg Heart Rate 80 /min Body Temperature 98.0 F Respiratory Rate 18 /min Weight 253.00 lb 12/27/2016 3:38pm BP Systolic 160 mmHg BP Diastolic 80 mmHg Heart Rate 80 /min Body Temperature 98.6 F Respiratory Rate 18 /min Weight 253.00 lb 11/08/2016 2:59pm BP Systolic 140 mmHg BP Diastolic 90 mmHg Heart Rate 76 /min Body Temperature 98.0 F Respiratory Rate 18 /min Weight 252.00 lb 09/27/2016 11:43am BP Systolic 154 mmHg BP Diastolic 96 mmHg BP Systolic Recheck 160 mmHg BP Diastolic Recheck 98 mmHg Heart Rate 72 /min Respiratory Rate 20 /min 09/20/2016 11:41am BP Systolic 128 mmHg BP Diastolic 80 mmHg Heart Rate 68 /min Body Temperature 98.0 F Respiratory Rate 18 /min Height 67 inches 5'7" Weight 248.00 lb BMI (Body Mass Index) 38.8 kg/m2 04/10/2016 2:22pm BP Systolic 164 mmHg BP Diastolic 82 mmHg BP Systolic Recheck 138 mmHg BP Diastolic Recheck 80 mmHg Heart Rate 70 /min Body Temperature 98.1 F Height 67 inches 5'7" Weight 249.00 lb BMI (Body Mass Index) 39.0 kg/m2 Right Visual Acuity Distance 20/30 uncorrected Left Visual Acuity Distance 20/40 both 20/25 03/13/2016 11:07am BP Systolic 140 mmHg BP Diastolic 80 mmHg Heart Rate 72 /min Irregular Body Temperature 98.1 F Respiratory Rate 20 /min Height 67 inches 5'7" Weight 248.25 lb BMI (Body Mass Index) 38.9 kg/m2 02/23/2016 4:13pm BP Systolic 142 mmHg BP Diastolic 86 mmHg Heart Rate 84 /min Body Temperature 98.2 F Respiratory Rate 20 /min Height 67 inches 5'7" Weight 256.50 lb BMI (Body Mass Index) 40.2 kg/m2 12/03/2015 11:07am BP Systolic 138 mmHg BP Diastolic 82 mmHg Heart Rate 106 /min Body Temperature 101.3 F Respiratory Rate 24 /min O2 % BldC Oximetry 86 % Height 67 inches 5'7" Weight 242.00 lb BMI (Body Mass Index) 37.9 kg/m2 11/16/2015 3:41pm BP Systolic 140 mmHg BP Diastolic 80 mmHg Heart Rate 68 /min Body Temperature 97.9 F Respiratory Rate 20 /min Height 67 inches 5'7" Weight 242.00 lb BMI (Body Mass Index) 37.9 kg/m2 09/08/2015 9:12am BP Systolic 142 mmHg BP Diastolic 80 mmHg Heart Rate 101 /min Body Temperature 101.2 F Respiratory Rate 20 /min O2 % BldC Oximetry 93 % Height 67 inches 5'7" Weight 244.25 lb BMI (Body Mass Index) 38.3 kg/m2 03/24/2015 3:13pm BP Systolic 140 mmHg BP Diastolic 74 mmHg Heart Rate 70 /min Body Temperature 97.6 F Respiratory Rate 18 /min Height 67 inches 5'7" Weight 231.00 lb BMI (Body Mass Index) 36.2 kg/m2 02/22/2015 12:47pm BP Systolic 120 mmHg BP Diastolic 78 mmHg Heart Rate 68 /min Body Temperature 98.1 F Respiratory Rate 18 /min Height 67 inches 5'7" Weight 233.00 lb BMI (Body Mass Index) 36.5 kg/m2 12/09/2014 1:08pm BP Systolic 140 mmHg BP Diastolic 60 mmHg Heart Rate 78 /min Respiratory Rate 16 /min Height 67 inches 5'7" Weight 233.00 lb BMI (Body Mass Index) 36.5 kg/m2 02/18/2014 2:04pm BP Systolic 140 mmHg BP Diastolic 74 mmHg Heart Rate 64 /min Body Temperature 96.8 F Respiratory Rate 18 /min Height 67 inches 5'7" Weight 213.00 lb BMI (Body Mass Index) 33.4 kg/m2 12/29/2013 12:09pm BP Systolic 174 mmHg BP Diastolic 80 mmHg Heart Rate 72 /min Respiratory Rate 16 /min Height 67.25 inches 5'7.25" Weight 212.38 lb BMI (Body Mass Index) 33.0 kg/m2 12/01/2013 11:35am BP Systolic 152 mmHg BP Diastolic 92 mmHg Heart Rate 80 /min Body Temperature 97.8 F Respiratory Rate 16 /min Height 67.25 inches 5'7.25" Weight 222.38 lb BMI (Body Mass Index) 34.6 kg/m2 05/04/2013 4:09pm BP Systolic 152 mmHg BP Diastolic 82 mmHg BP Systolic Recheck 140 mmHg 10 min later BP Diastolic Recheck 82 mmHg 10 min later Heart Rate 76 /min 04/17/2013 10:58am BP Systolic 142 mmHg BP Diastolic 82 mmHg Heart Rate 80 /min Body Temperature 97.7 F Respiratory Rate 16 /min O2 % BldC Oximetry 98 % Height 67.5 inches 5'7.50" Weight 225.50 lb BMI (Body Mass Index) 34.8 kg/m2 04/01/2013 8:20am BP Systolic 160 mmHg BP Diastolic 100 mmHg Heart Rate 80 /min Body Temperature 96.5 F Respiratory Rate 20 /min Height 67.5 inches 5'7.50" Weight 225.00 lb BMI (Body Mass Index) 34.7 kg/m2 03/27/2013 10:33am BP Systolic 196 mmHg BP Diastolic 104 mmHg Heart Rate 84 /min Body Temperature 97.6 F Respiratory Rate 24 /min O2 % BldC Oximetry 94 % Height 67.5 inches 5'7.50" Weight 222.38 lb BMI (Body Mass Index) 34.3 kg/m2 03/23/2013 8:11am BP Systolic 174 mmHg BP Diastolic 110 mmHg Heart Rate 75 /min Body Temperature 97.5 F Respiratory Rate 18 /min O2 % BldC Oximetry 93 % Height 67.5 inches 5'7.50" Weight 222.38 lb BMI (Body Mass Index) 34.3 kg/m2 10/28/2012 11:46am BP Systolic 120 mmHg BP Diastolic 72 mmHg Heart Rate 80 /min Body Temperature 97.7 F Height 67.5 inches 5'7.50" Weight 232.00 lb BMI (Body Mass Index) 35.8 kg/m2 10/14/2012 11:36am BP Systolic 150 mmHg BP Diastolic 72 mmHg Heart Rate 76 /min Body Temperature 97.1 F O2 % BldC Oximetry 98 % Height 67.5 inches 5'7.50" Weight 235.50 lb BMI (Body Mass Index) 36.3 kg/m2 10/09/2012 11:05am BP Systolic 206 mmHg BP Diastolic 94 mmHg Heart Rate 78 /min Body Temperature 96.4 F Respiratory Rate 24 /min O2 % BldC Oximetry 96 % Height 67.5 inches 5'7.50" Weight 230.38 lb BMI (Body Mass Index) 35.5 kg/m2 04/04/2012 4:08pm BP Systolic 156 mmHg BP Diastolic 90 mmHg Heart Rate 60 /min Body Temperature 98.5 F Height 67.5 inches 5'7.50" Weight 235.00 lb BMI (Body Mass Index) 36.3 kg/m2 07/19/2011 11:08am BP Systolic 130 mmHg BP Diastolic 88 mmHg Heart Rate 72 /min Respiratory Rate 15 /min Height 67.5 inches 5'7.50" Weight 235.00 lb BMI (Body Mass Index) 36.3 kg/m2 06/14/2011 1:29pm BP Systolic 132 mmHg BP Diastolic 90 mmHg Heart Rate 66 /min Body Temperature 96.8 F Height 67.5 inches 5'7.50" Weight 232.00 lb BMI (Body Mass Index) 35.8 kg/m2 Right Visual Acuity Distance 20/30 corrected Left Visual Acuity Distance 20/30 corrected 05/04/2011 8:46am BP Systolic 132 mmHg BP Diastolic 90 mmHg Heart Rate 72 /min Body Temperature 97.7 F Respiratory Rate 20 /min O2 % BldC Oximetry 93 % Height 67.5 inches 5'7.50" Weight 230.00 lb BMI (Body Mass Index) 35.5 kg/m2 04/06/2010 4:30pm BP Systolic 164 mmHg BP Diastolic 84 mmHg Heart Rate 72 /min Body Temperature 98.0 F Height 67.5 inches 5'7.50" Weight 231.00 lb BMI (Body Mass Index) 35.6 kg/m2 11/01/2008 9:49am BP Systolic 124 mmHg BP Diastolic 82 mmHg Heart Rate 72 /min Body Temperature 97.7 F Height 67.5 inches 5'7.50" Weight 232.00 lb BMI (Body Mass Index) 35.8 kg/m2 10/07/2008 3:58pm BP Systolic 122 mmHg BP Diastolic 84 mmHg Heart Rate 73 /min O2 % BldC Oximetry 95 % Weight 233.00 lb 09/24/2008 4:46pm BP Systolic 142 mmHg BP Diastolic 80 mmHg Heart Rate 80 /min Body Temperature 98.5 F Weight 231.00 lb 09/10/2008 4:12pm BP Systolic 154 mmHg BP Diastolic 94 mmHg Heart Rate 100 /min Body Temperature 99.0 F O2 % BldC Oximetry 84 % Weight 229.00 lb 08/04/2008 3:34pm BP Systolic 146 mmHg BP Diastolic 80 mmHg Heart Rate 78 /min Body Temperature 98.0 F Height 67.5 inches 5'7.50" Weight 234.00 lb BMI (Body Mass Index) 36.1 kg/m2 07/24/2008 1:09pm BP Systolic 130 mmHg BP Diastolic 90 mmHg Heart Rate 80 /min Height 67.5 inches 5'7.50" Weight 226.00 lb BMI (Body Mass Index) 34.9 kg/m2 06/07/2008 11:11am BP Systolic 126 mmHg BP Diastolic 84 mmHg Heart Rate 84 /min Body Temperature 98.4 F Height 67.5 inches 5'7.50" 03/19/2008 2:07pm BP Systolic 150 mmHg BP Diastolic 80 mmHg Heart Rate 96 /min Body Temperature 98.7 F Height 67.5 inches 5'7.50" Weight 236.00 lb BMI (Body Mass Index) 36.4 kg/m2 09/19/2007 5:07pm BP Systolic 140 mmHg BP Diastolic 74 mmHg Heart Rate 66 /min Body Temperature 98.1 F Height 67.5 inches 5'7.50" Weight 231.00 lb BMI (Body Mass Index) 35.6 kg/m2 05/20/2007 10:38am BP Systolic 130 mmHg BP Diastolic 90 mmHg Heart Rate 74 /min Body Temperature 98.0 F Height 67.5 inches 5'7.50" Weight 225.00 lb BMI (Body Mass Index) 34.7 kg/m2 10/07/2006 10:06am BP Systolic 150 mmHg BP Diastolic 76 mmHg Heart Rate 72 /min Height 67.5 inches 5'7.50" Weight 225.00 lb BMI (Body Mass Index) 34.7 kg/m2 09/13/2006 9:34am BP Systolic 140 mmHg BP Diastolic 82 mmHg Heart Rate 84 /min Body Temperature 97.9 F Height 67.5 inches 5'7.50" Weight 226.00 lb BMI (Body Mass Index) 34.9 kg/m2 Results Test Date Facility Test Result H/L Range Note CBC Electronic [facility] 11/19/2017 [facility] (a) WBC 11.0 x10^3/UL High 4.0-10.0 1 RBC 4.51 x10^6/UL 3.93-6.00 HGB 13.7 g/dL 12.0-17.0 HCT 42 % 35-50 MCV 92.9 fL 80.0-95.0 MCH 30.4 pg 25.6-32.2 MCHC 32.7 g/dL 32.2-36.0 RDW-CV 15.2 % High 11.6-14.4 2 PLT 383 x10^3/UL 163-400 MPV 9.6 fL 9.4-12.4 Shawn# 7.56 x10^3/UL High 1.56-6.13 3 Lymph# 2.01 x10^3/UL 1.18-3.74 [place]# 0.70 x10^3/UL 0.24-0.82 Eos # 0.6 x10^3/UL High 0.0-0.5 4 Baso # 0.06 x10^3/UL 0.01-0.08 Shawn% 68.8 % 34.0-70.0 Lymph % 18.3 % Low 20.0-52.0 5 [place]% 6.4 % 5.0-12.0 Eos% 5.8 % 0.7-7.0 Baso% 0.5 % 0.1-1.2 Laboratory test finding 11/19/2017 Adrian Huber ([facility]) TSH 1.71 mIU/L 0.50-6.00 Comprehensive Metabolic 11/19/2017 Adrian Huber ([facility]) Sodium 143 mEq/L 134-149 Prof Potassium 4.5 mEq/L 3.6-5.5 Chloride 105 mEq/L 94-112 Carbon Dioxide 25 mEq/L 21-32 Glucose 108 mg/dL High 70-105 6 BUN 18 mg/dL 6-26 Creatinine 0.6 mg/dL 0.6-1.4 BUN/Creat Ratio 30.0 CALC 8.0-36.0 Calcium 9.3 mg/dL 8.6-10.2 Total Protein 7.1 g/dL 6.4-8.3 Albumin 4.0 g/dL 3.8-5.5 Globulin 3.1 g/dL 2.0-4.8 A/G Ratio 1.3 CALC 0.6-2.3 Alk. Phosphatase 131 U/L High 30-110 7 Alt (SGPT) 23 U/L 7-35 Ast (Sgot) 20 U/L 5-34 Total Bilirubin 0.4 mg/dL 0.2-1.3 GFR Non- >60 ml/min/1.73m^ >=60 GFR >60 ml/min/1.73m^ >=60 Lipid Profile 11/19/2017 Adrian Huber ([facility]) Cholesterol 193 mg/dL 120- 200 Triglycerides 55 mg/dL 30-200 HDL Cholesterol 71 mg/dL 30-85 LDL (Calculated) 111 CALC 0-129 VLDL Cholesterol 11 mg/dL 0-50 HDL Risk Factor 2.7 CALC 0.0-4.4 CBC Auto Diff 10/04/2017 [facility] White Blood Count 9.2 10^3/uL N 3.5-10.8 Red Blood Count 5.04 10^6/uL N 4.0-5.4 Hemoglobin 15.2 g/dL N 12.0-16.0 Hematocrit 46 % N 35-47 Mean Corpuscular Volume 90 fL N 80-97 Mean Corpuscular Hemoglobin 30 pg N 27-31 Mean Corpuscular HGB Conc 33 g/dL N 31-36 Red Cell Distribution Width 16 % High 10.5-15 Platelet Count 336 10^3/uL N 150-450 Mean Platelet Volume 7.8 um3 N 7.4-10.4 Abs Neutrophils 6.6 10^3/uL N 1.5-7.7 Abs Lymphocytes 1.6 10^3/uL N 1.0-4.8 Abs Monocytes 0.9 10^3/uL High 0-0.8 Abs Eosinophils 0.1 10^3/uL N 0-0.6 Abs Basophils 0 10^3/uL N 0-0.2 Abs Nucleated RBC 0 10^3/uL Granulocyte % 71.7 % N 38-83 Lymphocyte % 17.8 % Low 25-47 Monocyte % 9.4 % High 0-7 Eosinophil % 0.8 % N 0-6 Basophil % 0.3 % N 0-2 Nucleated Red Blood Cells % 0.1 Comp Metabolic Panel 10/04/2017 [facility] Sodium 136 mmol/L Low 139-145 Potassium 3.8 mmol/L N 3.5-5.0 Chloride 102 mmol/L N 101-111 Co2 Carbon Dioxide 26 mmol/L N 22-32 Anion Gap 8 mmol/L N 2-11 Glucose 95 mg/dL N 70-100 Blood Urea Nitrogen 27 mg/dL High 6-24 Creatinine 0.73 mg/dL N 0.51-0.95 BUN/Creatinine Ratio 37.0 High 8-20 Calcium 9.4 mg/dL N 8.6-10.3 Total Protein 7.4 g/dL N 6.4-8.9 Albumin 3.8 g/dL N 3.2-5.2 Globulin 3.6 g/dL N 2-4 Albumin/Globulin Ratio 1.1 N 1-3 Total Bilirubin 0.40 mg/dL N 0.2-1.0 Alkaline Phosphatase 94 U/L N 34-104 Alt 18 U/L N 7-52 Ast 13 U/L N 13-39 Egfr Non- 81.6 >60 Egfr 104.9 >60 8 Laboratory test finding 10/04/2017 [facility] Lipase < 10 U/L Low 11.0-82.0 C Reactive Protein 22.51 mg/L High < 5.00 9 Arterial Blood Gas 05/16/2017 [facility] O2 Device BiPAP Fio2 100 Vent Mode BiPAP Bipap 10 Ipap 5 PH Arterial 7.32 Low 7.35-7.45 Pco2 Arterial 58 mmHg High 35-45 Po2 Arterial 341 mmHg High 80-100 O2 Saturation Arterial 99.3 % High 95-98 Base Excess Arterial 2.2 High -2.0-2.0 10 Hco3 Arterial 26.6 mmol/L N 19-31 Rapid Influenza A & B 05/16/2017 [facility] Influenza A Molecular NEGATIVE Negative 11 Molecular Influenza B Molecular NEGATIVE Negative Laboratory test finding 05/16/2017 [facility] Rapid Influenza A & B SEE RESULT BELOW 12 Antigen Arterial Blood Gas 05/16/2017 [facility] O2 Device CPAP Fio2 100 Epap 7.5 PH Arterial 7.35 N 7.35-7.45 Pco2 Arterial 53 mmHg High 35-45 Po2 Arterial 50 mmHg Low 80-100 13 O2 Saturation Arterial 88.4 % Low 95-98 Base Excess Arterial 2.4 High -2.0-2.0 14 Hco3 Arterial 26.4 mmol/L N 19-31 CBC Auto Diff 05/16/2017 [facility] White Blood Count 10.1 10^3/uL N 3.5-10.8 Red Blood Count 4.96 10^6/uL N 4.0-5.4 Hemoglobin 14.7 g/dL N 12.0-16.0 Hematocrit 44 % N 35-47 Mean Corpuscular Volume 90 fL N 80-97 Mean Corpuscular Hemoglobin 30 pg N 27-31 Mean Corpuscular HGB Conc 33 g/dL N 31-36 Red Cell Distribution Width 16 % High 10.5-15 Platelet Count 325 10^3/uL N 150-450 Mean Platelet Volume 8 um3 N 7.4-10.4 Abs Neutrophils 7.5 10^3/uL N 1.5-7.7 Abs Lymphocytes 1.6 10^3/uL N 1.0-4.8 Abs Monocytes 0.7 10^3/uL N 0-0.8 Abs Eosinophils 0.1 10^3/uL N 0-0.6 Abs Basophils 0.1 10^3/uL N 0-0.2 Abs Nucleated RBC 0.01 10^3/uL Granulocyte % 74.7 % N 38-83 Lymphocyte % 16.2 % Low 25-47 Monocyte % 7.3 % N 1-9 Eosinophil % 0.5 % N 0-6 Basophil % 1.3 % N 0-2 Nucleated Red Blood Cells % 0 Laboratory test finding 05/16/2017 [facility] B-Type Natriuretic Peptide BNP 45 pg /mL 15 Partial Thrombo Time PTT 31.0 seconds N 26.0-36.3 Lactic Acid 1.3 mmol/L N 0.5-2.0 16 Comp Metabolic Panel 05/16/2017 [facility] Sodium 137 mmol/L N 133-145 Potassium 3.9 mmol/L N 3.5-5.0 Chloride 103 mmol/L N 101-111 Co2 Carbon Dioxide 28 mmol/L N 22-32 Anion Gap 6 mmol/L N 2-11 Glucose 118 mg/dL High 70-100 Blood Urea Nitrogen 17 mg/dL N 6-24 Creatinine 0.54 mg/dL N 0.51-0.95 BUN/Creatinine Ratio 31.5 High 8-20 Calcium 9.7 mg/dL N 8.6-10.3 Total Protein 7.9 g/dL N 6.4-8.9 Albumin 4.2 g/dL N 3.2-5.2 Globulin 3.7 g/dL N 2-4 Albumin/Globulin Ratio 1.1 N 1-3 Total Bilirubin 0.40 mg/dL N 0.2-1.0 Alkaline Phosphatase 120 U/L High 34-104 Alt 11 U/L N 7-52 Ast 16 U/L N 13-39 Egfr Non- 116.0 >60 Egfr 149.1 >60 17 Laboratory test finding 05/16/2017 [facility] Creatine Kinase(CK) 58 U/L N 10- 223 C Reactive Protein 14.02 mg/L High < 5.00 18 Troponin I 0.00 ng/mL <0.04 CKMB 05/16/2017 [facility] CKMB ng/mL 1.8 ng/mL N 0.6-6.3 Laboratory test 05/16/2017 [facility] D Dimer 258 ng/mL High Less Than 19 finding Quantitative 230 Laboratory test 04/04/2017 Campbell Cecile ([facility]) TSH 2.68 0.50-6.00 finding mIU/L Comprehensive 04/04/2017 Campbell Cecile ([facility]) Sodium 148 mEq/L 134-149 Metabolic Prof Potassium 5.0 mEq/L 3.6-5.5 Chloride 110 mEq/L 94-112 Carbon Dioxide 23 mEq/L 21-32 Glucose 102 mg/dL 70-105 BUN 13 mg/dL 6-26 Creatinine 0.6 mg/dL 0.6-1.4 BUN/Creat Ratio 21.7 CALC 8.0-36.0 Calcium 9.4 mg/dL 8.6-10.2 Total Protein 6.8 g/dL 6.4-8.3 Albumin 3.9 g/dL 3.8-5.5 Globulin 2.9 g/dL 2.0-4.8 A/G Ratio 1.3 CALC 0.6-2.3 Alk. Phosphatase 113 U/L High 30-110 20 Alt (SGPT) 14 U/L 7-35 Ast (Sgot) 17 U/L 5-34 Total Bilirubin 0.5 mg/dL 0.2-1.3 GFR Non- >60 ml/min/1.73m^ >=60 GFR >60 ml/min/1.73m^ >=60 Lipid Profile 04/04/2017 Adrian Huber ([facility]) Cholesterol 179 mg/dL 120- 200 Triglycerides 47 mg/dL 30-200 HDL Cholesterol 75 mg/dL 30-85 LDL (Calculated) 95 CALC 0-129 VLDL Cholesterol 9 mg/dL 0-50 HDL Risk Factor 2.4 CALC 0.0-4.4 Complete Blood Count 04/04/2017 Adrian Huber ([facility]) WBC 10.5 x10^3/UL High 3.6-9.6 RBC 4.95 x10^6/UL 3.90-5.70 HGB 14.7 g/dL 12.1-17.2 HCT 44 % 36-50 MCV 89.0 fL 82.2-97.4 MCH 29.8 pg 27.6-33.3 MCHC 33.5 g/dL 33.0-35.5 RDW 15.1 % High 11.6-13.7 PLT 360 x10^3/UL 150-400 MPV 6.7 fL Low 7.4-10.4 Gran # 7.1 x10^3/UL 1.5-7.2 Lymph# 2.6 x10^3/UL 0.7-4.9 [place]# 0.8 x10^3/UL 0.1-0.9 Gran % 66.9 % 42.2-75.2 Lymph % 25.3 % 20.5-51.1 [place]% 7.8 % 1.7-9.3 Comprehensive Metabolic 04/04/2016 Campbell Cecile ([facility]) Sodium 141 mEq/L 134-149 Prof Potassium 4.9 mEq/L 3.6-5.5 Chloride 102 mEq/L 94-112 Carbon Dioxide 28 mEq/L 21-32 Glucose 90 mg/dL 70-105 BUN 16 mg/dL 6-26 Creatinine 0.6 mg/dL 0.6-1.4 BUN/Creat Ratio 26.7 CALC 8.0-36.0 Calcium 8.9 mg/dL 8.6-10.2 Total Protein 6.8 g/dL 6.4-8.3 Albumin 3.9 g/dL 3.8-5.5 Globulin 2.9 g/dL 2.0-4.8 A/G Ratio 1.3 CALC 0.6-2.3 Alk. Phosphatase 100 U/L 30-110 Alt (SGPT) 14 U/L 7-35 Ast (Sgot) 20 U/L 5-34 Total Bilirubin 0.5 mg/dL 0.2-1.3 GFR Non- >60 ml/min/1.73m^ >=60 GFR >60 ml/min/1.73m^ >=60 Lipid Profile 04/04/2016 Adrian Cecile ([facility]) Cholesterol 152 mg/dL 120- 200 Triglycerides 52 mg/dL 30-200 HDL Cholesterol 70 mg/dL 30-85 LDL (Calculated) 72 CALC 0-129 VLDL Cholesterol 10 mg/dL 0-50 HDL Risk Factor 2.2 CALC 0.0-4.4 CBC Electronic (a) 04/04/2016 [facility] WBC 8.1 3.6-9.6 (607)- - RBC 4.87 3.90-5.70 Hemoglobin ([facility]/CTX) 14.6 g/dL 12.1 - 17.2 Hematocrit ([facility]/CTX) 44.8 % 36.1 - 50.3 Platelets 313 10^3/ul 150-400 Lymph% 24.4 % 17.0-48.0 Mixed% 5.2 Neutrophils % 70.4 Mean Corpuscular Vol 92 82.2-97.4 Mean Corpuscular Hemoglobin 29.9 27.6-33.3 Mean Corpuscular Hemo Concen 32.5 32.0-36.0 RDW 14.9 High 11.6-13.7 Mean Platelet Volume 7.1 5.5-11.0 Comprehensive Metabolic 02/23/2016 [facility] Flora (a) Sodium 143 mEq/L 134-149 Prof Potassium 4.9 mEq/L 3.6-5.5 Chloride 104 mEq/L 94-112 Carbon Dioxide 29 mEq/L 21-32 Glucose 94 mg/dL 70-105 BUN 20 mg/dL 6-26 Creatinine 0.7 mg/dL 0.6-1.4 BUN/Creat Ratio 28.6 CALC 8.0-36.0 Calcium 9.6 mg/dL 8.6-10.2 Total Protein 7.3 g/dL 6.4-8.3 Albumin 4.0 g/dL 3.8-5.5 Globulin 3.3 g/dL 2.0-4.8 A/G Ratio 1.2 CALC 0.6-2.3 Alk. Phosphatase 98 U/L 30-110 Alt (SGPT) 36 U/L High 7-35 21 Ast (Sgot) 29 U/L 5-34 Total Bilirubin 0.4 mg/dL 0.2-1.3 GFR Non- >60 ml/min/1.73m^ >=60 GFR >60 ml/min/1.73m^ >=60 Laboratory test 02/23/2016 Adrian Huber (a) TSH 1.06 mIU/L 0.50- 6.00 finding Laboratory test 02/23/2016 [facility] Brain Natural 89.6 pg/mL < 100 finding (607)- - Peptide CBC Electronic 02/23/2016 [facility] WBC 10.0 High 3.6-9.6 22 (Fma) (607)- - RBC 4.16 3.90-5.70 Hemoglobin ([facility]/CTX) 13.4 g/dL 12.1 - 17.2 Hematocrit ([facility]ma/[facility]/CTX) 39.5 % 36.1 - 50.3 Platelets 361 10^3/ul 150-400 Lymph% 24.1 % 17.0-48.0 Mixed% 5.2 Neutrophils % 70.7 Mean Corpuscular Vol 95 82.2-97.4 Mean Corpuscular Hemoglobin 32.2 27.6-33.3 Mean Corpuscular Hemo Concen 33.8 32.0-36.0 RDW 14.2 High 11.6-13.7 Mean Platelet Volume 6.6 5.5-11.0 CBC Auto Diff 12/03/2015 [facility] White Blood Count 10.4 10^3/uL N 3.5-10.8 Red Blood Count 5.00 10^6/uL N 4.0-5.4 Hemoglobin 15.1 g/dL N 12.0-16.0 Hematocrit 46 % N 35-47 Mean Corpuscular Volume 92 fL N 80-97 Mean Corpuscular Hemoglobin 30 pg N 27-31 Mean Corpuscular HGB Conc 33 g/dL N 31-36 Red Cell Distribution Width 16 % High 10.5-15 Platelet Count 258 10^3/uL N 150-450 Mean Platelet Volume 8 um3 N 7.4-10.4 Abs Neutrophils 7.7 10^3/uL N 1.5-7.7 Abs Lymphocytes 2.0 10^3/uL N 1.0-4.8 Abs Monocytes 0.5 10^3/uL N 0-0.8 Abs Eosinophils 0 10^3/uL N 0-0.6 Abs Basophils 0.1 10^3/uL N 0-0.2 Abs Nucleated RBC 0.01 10^3/uL N Granulocyte % 74.2 % N 38-83 Lymphocyte % 19.7 % Low 25-47 Monocyte % 4.7 % N 1-9 Eosinophil % 0.1 % N 0-6 Basophil % 1.3 % N 0-2 Nucleated Red Blood Cells % 0.1 N Comp Metabolic Panel 12/03/2015 [facility] Sodium 134 mmol/L N 133-145 Potassium 3.6 mmol/L N 3.5-5.0 Chloride 100 mmol/L Low 101-111 Co2 Carbon Dioxide 28 mmol/L N 22-32 Anion Gap 6 mmol/L N 2-11 Glucose 135 mg/dL High 70-100 Blood Urea Nitrogen 10 mg/dL N 6-24 Creatinine 0.58 mg/dL N 0.51-0.95 BUN/Creatinine Ratio 17.2 N 8-20 Calcium 8.9 mg/dL N 8.6-10.3 Total Protein 7.1 g/dL N 6.4-8.9 Albumin 3.8 g/dL N 3.2-5.2 Globulin 3.3 g/dL N 2-4 Albumin/Globulin Ratio 1.2 N 1-3 Total Bilirubin 0.60 mg/dL N 0.2-1.0 Alkaline Phosphatase 81 U/L N 34-104 Alt 13 U/L N 7-52 Ast 15 U/L N 13-39 Egfr Non- 107.2 N >60 Egfr 137.8 N >60 23 Laboratory test finding 12/03/2015 [facility] Troponin I 0.00 ng/mL N <0.03 24 Influenza A&B-[facility] 12/03/2015 [facility] Influenza A neg (607)- - Influenza B neg Xray 11/18/2015 [facility] Knee 3 Views LT <pending> [facility] [phone] Knee 3 Views RT <pending> Influenza A&[facility] 09/08/2015 [facility] Influenza A positive # (607)- - Influenza B negative Laboratory test 03/24/2015 Adrian Huber ([facility]) Vitamin D25 27 Low 30- 100 finding CBC Electronic ([facility]) 03/24/2015 [facility] WBC 9.8 High 3.6-9.6 25 (607)- - RBC 4.83 3.90-5.70 Hemoglobin ([facility]/CTX) 15.0 g/dL 12.1 - 17.2 Hematocrit (a/CMC/CTX) 45.4 % 36.1 - 50.3 Platelets 325 10^3/ul 150-400 Lymph% 28.4 % 17.0-48.0 Mixed% 5.7 Neutrophils % 65.9 Mean Corpuscular Vol 94 82.2-97.4 Mean Corpuscular Hemoglobin 31.0 27.6-33.3 Mean Corpuscular Hemo Concen 33.0 32.0-36.0 RDW 14.3 High 11.6-13.7 Mean Platelet Volume 7.3 5.5-11.0 Complete Blood Count 02/22/2015 Adrian Cecile ([facility]) WBC 10.7 x10^3/UL High 3.6-9.6 26 RBC 5.10 x10^6/UL 3.90-5.70 HGB 15.9 g/dL 12.1-17.2 HCT 48 % 36-50 MCV 94.0 fL 82.2-97.4 MCH 31.3 pg 27.6-33.3 MCHC 33.3 g/dL 33.0-35.5 RDW 14.8 % High 11.6-13.7 PLT 348 x10^3/UL 150-400 MPV 7.3 fL Low 7.4-10.4 Gran # 7.4 x10^3/UL High 1.5-7.2 Lymph# 2.7 x10^3/UL 0.7-4.9 [place]# 0.6 x10^3/UL 0.1-0.9 Gran % 68.7 % 42.2-75.2 Lymph % 25.6 % 20.5-51.1 [place]% 5.7 % 1.7-9.3 Comprehensive Metabolic 02/15/2015 Adrian Huber (a) Sodium 142 mEq/L 134-149 Prof Potassium 4.5 mEq/L 3.6-5.5 Chloride 103 mEq/L 94-112 Carbon Dioxide 30 mEq/L 21-32 Glucose 102 mg/dL 70-105 BUN 17 mg/dL 6-26 Creatinine 0.7 mg/dL 0.6-1.4 BUN/Creat Ratio 24.3 CALC 8.0-36.0 Calcium 9.2 mg/dL 8.6-10.2 Total Protein 7.4 g/dL 6.4-8.3 Albumin 4.2 g/dL 3.8-5.5 Globulin 3.2 g/dL 2.0-4.8 A/G Ratio 1.3 CALC 0.6-2.3 Alk. Phosphatase 108 U/L 30-110 Alt (SGPT) 13 U/L 7-35 Ast (Sgot) 15 U/L 5-34 Total Bilirubin 0.5 mg/dL 0.2-1.3 GFR Non- >60 ml/min/1.73m^ >=60 GFR >60 ml/min/1.73m^ >=60 Lipid Profile 02/15/2015 Adrian Huber (a) Cholesterol 191 mg/dL 120- 200 Triglycerides 56 mg/dL 30-200 HDL Cholesterol 76 mg/dL 30-85 LDL (Calculated) 104 CALC 0-129 VLDL Cholesterol 11 mg/dL 0-50 HDL Risk Factor 2.5 CALC 0.0-4.4 Complete Blood Count 02/15/2015 Campbell Cecile ([facility]) WBC 10.5 x10^3/UL High 3.6-9.6 27 RBC 4.79 x10^6/UL 3.90-5.70 HGB 15.3 g/dL 12.1-17.2 HCT 45 % 36-50 MCV 94.0 fL 82.2-97.4 MCH 32.0 pg 27.6-33.3 MCHC 34.1 g/dL 33.0-35.5 RDW 14.7 % High 11.6-13.7 PLT 333 x10^3/UL 150-400 MPV 7.2 fL Low 7.4-10.4 Gran # 6.7 x10^3/UL 1.5-7.2 Lymph# 3.0 x10^3/UL 0.7-4.9 [place]# 0.8 x10^3/UL 0.1-0.9 Gran % 62.5 % 42.2-75.2 Lymph % 29.5 % 20.5-51.1 [place]% 8.0 % 1.7-9.3 Laboratory test 02/15/2015 [facility] Cecile (a) TSH 2.45 mIU/L 0.50- 6.00 28 finding Laboratory test 02/18/2014 [facility] Cytology RUN DATE: 29 finding 02/19/ <SEE NOTE> HPV High Risk 02/18/2014 [facility] Human See Comment 30 Papillomavirus Source HPV High Risk Type 16, PCR Negative Negative HPV High Risk Type 18, PCR Negative Negative HPV Other Risk types Negative Negative 31 Ua - Non Micro (a) 02/18/2014 [facility] Appearance CLEAR (607)- - Color YELLOW Glucose NEG Bilirubin NEG Ketones NEG SP Grav 1.025 Blood NEG PH 6.0 Protein NEG Urobil 0.2 Nitrite NEG Leukocytes ([facility]) NEG Comprehensive Metabolic 02/08/2014 Campbell Cecile (a) Sodium 147 mEq/L 134-149 Prof Potassium 4.2 mEq/L 3.6-5.5 Chloride 105 mEq/L 94-112 Carbon Dioxide 23 mEq/L 21-32 Glucose 97 mg/dL 70-105 BUN 16 mg/dL 6-26 Creatinine 0.7 mg/dL 0.6-1.4 BUN/Creat Ratio 22.9 CALC 8.0-36.0 Calcium 9.5 mg/dL 8.6-10.2 Total Protein 7.1 g/dL 6.3-8.1 Albumin 4.4 g/dL 3.8-5.5 Globulin 2.7 g/dL 2.0-4.8 A/G Ratio 1.6 CALC 0.6-2.3 Alk. Phosphatase 90 U/L 30-110 Alt (SGPT) 12 U/L 7-35 Ast (Sgot) 14 U/L 5-34 Total Bilirubin 0.6 mg/dL 0.2-1.3 Lipid Profile 02/08/2014 Adrian Huber ([facility]) Cholesterol 173 mg/dL 120- 200 Triglycerides 67 mg/dL 30-200 HDL Cholesterol 63 mg/dL 30-85 LDL (Calculated) 97 CALC 0-129 VLDL Cholesterol 13 mg/dL 0-50 HDL Risk Factor 2.7 CALC 0.0-4.4 Complete Blood Count 02/08/2014 Adrian Huber (a) WBC 9.7 x10^3/UL High 3.6-9.6 RBC 4.81 x10^6/UL 3.90-5.70 HGB 15.6 g/dL 12.1-17.2 HCT 46 % 36-50 MCV 95.0 fL 82.2-97.4 MCH 32.4 pg 27.6-33.3 MCHC 34.0 g/dL 33.0-35.5 RDW 13.0 % 11.6-13.7 PLT 302 x10^3/UL 150-400 MPV 7.4 fL 7.4-10.4 Gran # 6.1 x10^3/UL 1.5-7.2 Lymph# 3.2 x10^3/UL 0.7-4.9 [place]# 0.4 x10^3/UL 0.1-0.9 Gran % 61.2 % 42.2-75.2 Lymph % 33.7 % 20.5-51.1 [place]% 5.1 % 1.7-9.3 Laboratory test finding 10/14/2012 [facility] Rheumatoid Factor <15 IU/mL <15 32 Cora (Anti-Nuclear AB) Screen Reflexed to FA Abnormal Negative Cora Hep-2 10/14/2012 [facility] Cora Pattern Speckled Negative Cora Titer 1:320 <1:80 Cora Reviewed By MD Chevy Baig <SEE NOTE> 33 Laboratory test 10/14/2012 [facility] Sed Rate 5mm finding (607)- - ([facility]) Comprehensive 10/09/2012 Campbell Cecile ([facility]) Albumin 4.3 g/dL 3.8-5 Metabolic Prof .5 Alk. Phos. 91 U/L 30-110 Alt (SGPT) 10 U/L 7-35 Ast (Sgot) 15 U/L 5-34 BUN 16 mg/dL 6-26 Calcium 9.4 mg/dL 8.6-10.2 Chloride 95 mEq/L 94-112 Creatinine 0.7 mg/dL 0.6-1.4 Carbon Dioxide 26 mEq/L 21-32 Glucose 96 mg/dL 70-105 Sodium 136 mEq/L 134-149 Total Bilirubin 0.8 mg/dL 0.2-1.3 Total Protein 7.0 g/dL 6.3-8.1 Potassium 4.3 mEq/L 3.6-5.5 Globulin 2.8 g/dL 2.0-4.8 A/G Ratio 1.5 Calc 0.6-2.3 BUN/Creat Ratio 22.7 Calc 8.0-36.0 Lipid Profile 10/09/2012 Campbell Cecile ([facility]) Cholesterol 164 mg/dL 120- 200 HDL 57 mg/dL 30-85 Triglycerides 59 mg/dL 30-200 HDL Risk Factor 2.9 CALC 0.0-4.4 LDL (Calculated) 96 CALC 0-129 VLDL (Calculated) 12 mg/dL 0-50 Laboratory test 10/09/2012 [facility] Cecile (a) Free T4 1.18 ng/dL 0.75- 1.54 finding TSH 1.55 mIU/L 0.50-6.00 Laboratory test 06/14/2011 [facility] Thin Prep W/HPV SEE NOTE 34 finding [address] [place] [id number] [phone] Ua - Non Micro 06/14/2011 [facility] Medicine Appearance yellow (a) (607)- - Color clear Glucose neg Bilirubin neg Ketones neg SP Grav 1.015 Blood neg PH 7.5 Protein neg Urobil 0.2 Nitrite neg Leukocytes ([facility]) neg Comprehensive Metabolic 05/04/2011 Campbell Cecile ([facility]) Albumin 4.5 g/dL 3.8-5.5 Prof Alk. Phos. 87 U/L 30-110 Alt (SGPT) 11 U/L 7-35 Ast (Sgot) 14 U/L 5-34 BUN 15 mg/dL 6-26 Calcium 9.2 mg/dL 8.6-10.2 Chloride 110 mEq/L 94-112 Creatinine 0.7 mg/dL 0.6-1.4 Carbon Dioxide 25 mEq/L 21-32 Glucose 103 mg/dL 70-105 Sodium 138 mEq/L 134-149 Total Bilirubin 0.6 mg/dL 0.2-1.3 Total Protein 7.1 g/dL 6.3-8.1 Potassium 4.7 mEq/L 3.6-5.5 Globulin 2.6 g/dL 2.0-4.8 A/G Ratio 1.7 Calc 0.6-2.2 BUN/Creat Ratio 22.2 Calc 8.0-36.0 Lipid Profile 05/04/2011 [facility] Cecile (a) Cholesterol 181 mg/dL 120- 200 HDL 70 mg/dL 30-85 Triglycerides 69 mg/dL 30-200 HDL Risk Factor 2.6 CALC 0.0-4.0 LDL (Calculated) 98 CALC 0-129 VLDL (Calculated) 14 mg/dL 0-50 CBC Electronic (a) 05/04/2011 [facility] WBC 10.4 High 3.6-9.6 (607)- - RBC 4.85 3.90-5.70 Hemoglobin ([facility]/CTX) 15.5 g/dL 12.1 - 17.2 Hematocrit ([facility]/CTX) 45.8 % 36.1 - 50.3 Platelets 302 10^3/ul 150-400 Lymph% 14.1 Low 20.5-51.1 Mixed% 5.1 Neutrophils % 80.8 Mean Corpuscular Vol 94 82.2-97.4 Mean Corpuscular Hemoglobin 32.1 27.6-33.3 Mean Corpuscular Hemo Concen 33.9 32.0-36.0 RDW 13.2 11.6-13.7 Mean Platelet Volume 7.7 6.5-11.0 Laboratory test 11/01/2008 [facility] Thin Prep SEE NOTE [address] W/[place] [address] [phone] Cancelled Test SEE COMMENT 36 Ua - Non Micro (a) 11/01/2008 [facility] Appearance CLEAR (607)- - Color YELLOW Glucose NEG Bilirubin NEG Ketones NEG SP Grav 1.015 Blood NEG PH 7.5 Protein NEG Urobil 0.2 Nitrite NEG Leukocytes ([facility]) NEG Lipid Profile 11/01/2008 Campbell Flora ([facility]) Cholesterol 165 mg/dL 120- 200 37 HDL 59 mg/dL 30-85 Triglycerides 68 mg/dL 30-200 HDL Risk Factor 2.8 CALC Low 4.2-7.0 LDL (Calculated) 93 CALC 0-129 VLDL (Calculated) 14 mg/dL 0-50 Laboratory test 11/01/2008 Adrian Cecile ([facility]) Free T4 1.22 ng/dL 0.75- 1.54 finding TSH 1.36 mIU/L 0.50-6.00 Complete Blood Count 11/01/2008 Adrian Cecile ([facility]) WBC 9.1 x10^3/uL 3.6-9.6 Gran# 6.5 x10^3/uL 1.5-7.2 Gran% 71.1 % 42.2-75.2 HCT 43 % 36-50 HGB 14.7 g/dL 12.1-17.2 Lymph# 2.2 x10^3/uL 0.7-4.9 Lymph% 24.1 % 20.5-51.1 MCH 31.0 pg 27.6-33.3 MCV 91.4 fL 82.2-97.4 MCHC 33.9 g/dL 33.0-35.5 Mo# 0.4 x10^3/uL 0.1-0.9 Mo% 4.8 % 1.7-9.3 MPV 8.1 fL 7.4-10.4 PLT 386 x10^3/uL 150-400 RBC 4.74 x10^6/uL 3.90-5.70 RDW 15.1 % High 11.6-13.7 Comprehensive Metabolic 11/01/2008 Adrian Cecile ([facility]) Albumin 3.7 g/dL Low 3.8-5.5 38 Prof Alk. Phos. 84 U/L 30-110 Alt (SGPT) 9 U/L 7-35 Ast (Sgot) 17 U/L 5-34 BUN 15 mg/dL 6-26 Calcium 8.6 mg/dL 8.6-10.2 Chloride 102 mEq/L 94-112 Creatinine 0.7 mg/dL 0.6-1.4 Carbon Dioxide 31 mEq/L 21-32 Glucose 83 mg/dL 70-105 Sodium 135 mEq/L 134-149 Total Bilirubin 0.4 mg/dL 0.2-1.3 Total Protein 6.4 g/dL 6.3-8.1 Potassium 4.5 mEq/L 3.6-5.5 Globulin 2.7 g/dL 2.0-4.8 A/G Ratio 1.4 Calc 0.6-2.2 BUN/Creat Ratio 19.6 Calc 8.0-36.0 Laboratory test 10/07/2006 [facility] Thinprep Pap SEE IMAGE finding [address] W/[place] [address] GABBY/ASCUS [phone] HPV, High Risk Only Negative for hig <SEE NOTE> 39 Ua - Non Micro ([facility]ma) 10/07/2006 [facility] Appearance CLEAR (607)- - Color LT YELLOW Glucose NEG Bilirubin NEG Ketones NEG SP Grav 1.020 Blood NEG PH 6.5 Protein NEG Urobil 0.2 Nitrite NEG Leukocytes ([facility]) NEG 1 RESULTS VERIFIED BY REPEAT ANALYSIS 2 RESULTS VERIFIED BY REPEAT ANALYSIS 3 RESULTS VERIFIED BY REPEAT ANALYSIS 4 RESULTS VERIFIED BY REPEAT ANALYSIS 5 RESULTS VERIFIED BY REPEAT ANALYSIS 6 RESULTS VERIFIED BY REPEAT ANALYSIS 7 consistent w/ previous results 8 Because ethnic data is not always readily [...] 15-29 5 Kidney failure <15 (or dialysis) 9 Acute inflammation: >10.00 10 Reference ranges based on room air. 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 END OF REPORT * ML=Testing performed at Main Lab DEPARTMENT OF PATHOLOGY, [address] [place] [address] Chevy Álvarez M.D. Director [facility] # [id number] 13 Verbal to [id number] by [id number] at 0946 on 05/16/17. Results read back accurately. 14 Reference ranges based on room air. 15 >100 to <200 pg/mL: likely compensated congestive heart failure (CHF) 200 to 400 pg/mL: likely moderate CHF >400 pg/mL: likely moderate to severe CHF 16 [facility] Severe Sepsis and Septic Shock Management Bundle Measure requires all lactic acids initially measuring >2.0 mmol/L be repeated. 17 Because ethnic data is not always readily [...] 15-29 5 Kidney failure <15 (or dialysis) 18 Acute inflammation: >10.00 19 Please note: The following may produce a false positive D Dimer test: - Rheumatoid factor greater than 60 IU/ml - Plasma hemoglobin greater than 0.05 gm/dl - Bilirubin greater than 50 mg/dl - Lipids greater than 1000 mg/dl - FDP greater than 20 ug/ml 20 RESULTS VERIFIED BY REPEAT ANALYSIS 21 RESULTS VERIFIED BY REPEAT ANALYSIS 22 results jerilyn 23 Because ethnic data is not always readily [...] 15-29 5 Kidney failure <15 (or dialysis) 24 Reference Range and Interpretation: TnI (ng/mL) Interpretation Less Than 0.03 ng/mL Not supportive of diagnosis of MS 0.03 - 0.50 ng/mL Indeterminate: suggest serial studies if clinically indicated. Greater than 0.5 ng/mL Consistent with diagnosis of MS 25 results jerilyn'd 26 consistent w/ previous results 27 RESULTS VERIFIED BY REPEAT ANALYSIS 28 FASTING 29 RUN DATE: 02/19/14 [facility] LAB LIVE PAGE 1 RUN TIME: [id number] [place] [id number] Specimen Inquiry Name: YOSEPH ARMSTRONG : [address]: Alma Delia Castellano MD Acct: [id number] Unit: [id number] AGE: 53 Location: [facility] Re02/18/14 SEX: F Status: REG REF SPEC: [id number] CODY: 02/18/14-[address]: Alma Delia Castellano MD REQ: [id number] RECD: 02/18/14-6 STATUS: SOUT _ ORDERED: IMAGE ANALYSIS, HPV/Thin Prep FINAL DIAGNOSIS Negative for Intraepithelial lesion or Malignancy COMMENTS: Specimen sent to [facility] [email or web address] in [place], [place] on 02/19/14 by [id number] at 1044. Results will be reported separately. A. Ectocervical/Endocervical Specimen Adequacy: Satisfactory of evaluation Transformation zone component identified Patient Information: HPV: High risk HPV DNA testing regardless of pap results. Actual Specimen Date: 02/18/14 LMP If Unknown: 08/2013 ?: N Post Menopausal?: Y Hysterectomy?: N Previous Abnormal Pap Smears?:N Signed (signature on file) YAZ Larsen (ASCP) 02/19 1232 This Pap test was evaluated with the assistance of the ThinPrep Test Imaging System. Due to cytologic findings at the railroad design consultant microscope, comprehensive manual rescreening by a Assistant Chief Engineer may be required. The Pap Smear is a screening test designed to aid in the detection of premalignant and malignant conditions of the uterine cervix. It is not a diagnostic procedure and should not be used as the sole means of detecting cervical cancer. Both false- positive and false- negative reports do occur. Depending on your risk status, a Pap smear shoudl be obtained and evaluated every 1-3 years. END OF REPORT * ML=Testing performed at [facility] DEPARTMENT OF PATHOLOGY, [address] [place] [address] Chevy Álvarez M.D. Director [facility] # [id number] 30 RESULT: Ectocervical/Endocervical 31 The following Other High Risk HPV types were not detected: 31, 33, 35, 39, 45, 51, 52, 56, 58, 59, 66, and 68 Test Performed by: [place] [address] [employer] Furnace Tender: Walker Cesar III, M.D. 32 Test Performed by: [place] [address] [employer] Furnace Tender: Walker Cesar III, M.D. 33 Chevy Álvarez 34 [facility] [employer], [facility]. DEPARTMENT OF PATHOLOGY or Extension 7730 COMBINED HPV / LAND INSPECTOR CYTOLOGY REPORT PATIENT: YOSEPH ARMSTRONG : 1960 AGE: 50 Y SEX: F ACCT: [id number] PROCEDURE DATE: 06/14/2011 DATE RECEIVED: 06/15/2011 REQUESTING PHYSICIAN: HERNÁN ABDI MD LOCATION: [facility] Case No. [id number] PATIENT DATA: [id number] SPECIMEN SUBMITTED: * * (HPVR) THIN PREP W/HPV * * CERVICAL/ENDOCERVICAL RELEVANT HISTORY: LMP: 05/15/2011 Contraceptive: NONE Menarche: Y Previous smear date: ??/??/2008 SPECIMEN ADEQUACY SATISFACTORY FOR EVALUATION, ENDOCERVICAL TRANSFORMATION ZONE COMPONENT PRESENT GENERAL CATEGORIZATION NEGATIVE FOR INTRAEPITHELIAL LESIONS OR MALIGNANCY INTERPRETATION/ RESULT HYPERKERATOSIS. RECOMMENDATIONS Follow-up as clinically indicated. See Related Microbiology Result below. RELATED MICROBIOLOGY RESULT: HPV, HIGH RISK ONLY Source: CERVICAL Result: Negative for high/intermediate risk HPV types 16/18/31/33/35/39/45/51/52/56/58/59/68 Test method: Hybrid Capture 2. Thin Prep Pap tests are examined with an FDA approved location-guidance system. ADDITIONAL COPIES SENT TO: Screened/Rescreened Electronically Signed Sign Out Date/Time: by: by: CHAMP NAYAK, 06/21/2011 12:53 MD PATHOLOGIST The Pap smear is a screening test designed to aid in the detection of premalignant and malignant conditions of the uterine cervix. It is not a diagnostic procedure and should not be used as the sole means of detecting cervical cancer. Both false-positive and false-negative reports do occur. Performed @ [email or web address], [employer] [address] [place] [address] [address] [employer] DEPARTMENT OF PATHOLOGY or Extension [id number] [employer] INS[employer]OR CYTOLOGY REPORT PATIENT: YOSEPH ARMSTRONG : 1960 AGE: 48 Y SEX: F ACCT: [id number] PROCEDURE DATE: 11/01/2008 DATE RECEIVED: 11/02/2008 REQUESTING PHYSICIAN: RADHA GOODWIN NP LOCATION: [facility] Case No. [id number] PATIENT DATA: [id number] SPECIMEN SUBMITTED: * * (HPVR) THINPREP W/HPV * * ENDOCERVICAL RELEVANT HISTORY: LMP: 10/20/2008 Comment: PREVIOUS PAP: 10/07 ATYPICAL SQUAMOUS, NEGATIVE HPV SPECIMEN ADEQUACY SATISFACTORY FOR EVALUATION, ENDOCERVICAL TRANSFORMATION ZONE COMPONENT PRESENT GENERAL CATEGORIZATION NEGATIVE FOR INTRAEPITHELIAL LESIONS OR MALIGNANCY INTERPRETATION/ RESULT PARAKERATOSIS. RECOMMENDATIONS Follow-up as clinically indicated. Refer to separate report for HPV test results. ADDITIONAL COPIES SENT TO: Screened/Rescreened by: Electronically Signed by: TERRI SAUCEDO MD PATHOLOGIST Signed Date and Time: 11/03/2008 16:41 Thin Prep Pap tests are examined with an FDA-approved location-guidance system (20318). Performed @ [employer] [address] [place], [place] [id number] "" 36 The following test(s) has been cancelled with a brief explanation for the cancellation: Insufficient amount of cellular material for HPV testing. Client notified to recollect if still needed. 37 FASTING 38 RESULT RECHECKED 39 Negative for high/intermediate risk HPV types 16/18/31/33/35/39/45/51/52/56/58/59/68 Procedures Date Code Description Status 04/11/2018 80032 Pulse Oximetry Completed 12/03/2017 [id number] Mammogram Completed 11/22/2017 88298 CPHL SHQ Completed 08/28/2017 95872 Paring/Cutting Benign Lesion ([place]/Callus) Completed 05/29/2017 97622 Pulse Oximetry Completed 04/17/2016 [id number] Mammogram Completed 04/15/2016 [id number] Mammogram Completed 04/10/2016 51192 CPHL SHQ Completed 04/10/2016 25689 Vision Test- screening test of visual acuity, Completed quantitative, bila 04/06/2015 [id number] Mammogram Completed 02/22/2015 09116 CPHL SHQ Completed 04/09/2014 [id number] Colonoscopy Completed 04/05/2014 [id number] Mammogram Completed 04/02/2013 [id number] Mammogram Completed 03/27/2013 52823 Pulse Oximetry Completed 03/23/2013 85096 Pulse Oximetry Completed 10/14/2012 70158 Pulse Oximetry Completed 10/09/2012 44270 Pulse Oximetry Completed 04/04/2012 91373 Electrocardiogram Complete Completed 06/22/2011 [id number] Mammogram Completed 06/14/2011 61535 Vision Test- screening test of visual acuity, Completed quantitative, bila 05/04/2011 53363 Pulse Oximetry Completed 11/12/2008 [id number] Mammogram Completed 09/10/2008 08803 Nebulizer Treatment Completed 06/07/2008 32518 Nebulizer Treatment Completed 09/19/2007 73984 Nebulizer Treatment Completed 06/19/2007 [id number] Mammogram Completed Encounters Type Date Location Provider Dx Diagnosis Office Visit 04/23/2018 Main Office Alma Delia Castellano Z71.6 Tobacco abuse 9:40a Nikolai counseling J44.9 Chronic obstructive pulmonary disease, unspecified I10 Essential (primary) hypertension Office Visit 04/11/2018 4:30p Main Office Nicki Dupree J20.9 Acute bronchitis, Suero, FOLDER MACHINE unspecified F17.200 Nicotine dependence, unspecified, uncomplicated Z23 Encounter for immunization Z71.6 Tobacco abuse counseling Office Visit 02/26/2018 1:40p Main Office Alma Delia Win F17.200 Nicotine dependence, Nikolai Castellano unspecified, uncomplicated Z71.6 Tobacco abuse counseling Office Visit 01/23/2018 [facility] Alma Delia Win F17.200 Nicotine 8:30a Office Nikolai Castellano dependence, unspecified, uncomplicated S62.102A Fracture of unsp carpal bone, left wrist, init for clos fx Office Visit 11/22/2017 9:00a [facility] Alma Delia Win Z00.01 Encounter for Nikolai Castellano general adult medical exam w abnormal findings Z12.31 Encntr screen mammogram for malignant neoplasm of breast J20.9 Acute bronchitis, unspecified I10 Essential (primary) hypertension J44.9 Chronic obstructive pulmonary disease, unspecified F17.200 Nicotine dependence, unspecified, uncomplicated Z68.41 Body mass index (BMI) 40.0-44.9, adult Office Visit 08/28/2017 9:40a Main Office Alma Delia Girard44.9 Chronic obstructive Nikolai Castellano pulmonary disease, unspecified F17.200 Nicotine dependence, unspecified, uncomplicated I10 Essential (primary) hypertension L84 Corns and callosities M79.672 Pain in left foot Office Visit 06/29/2017 9:15a Main Office Chelsey Girard44.9 Chronic obstructive Rigoberto, FOLDER MACHINE pulmonary disease, unspecified F17.200 Nicotine dependence, unspecified, uncomplicated I10 Essential (primary) hypertension Office Visit 05/29/2017 2:10p Main Office Alma Delia Win J44.9 Chronic obstructive Nikolai Castellano pulmonary disease, unspecified F17.200 Nicotine dependence, unspecified, uncomplicated Office Visit 04/11/2017 3:40p [facility] Alma Delia Win J44.9 Chronic Nikolai Castellano obstructive pulmonary disease, unspecified F17.200 Nicotine dependence, unspecified, uncomplicated I10 Essential (primary) hypertension I89.0 Lymphedema, not elsewhere classified Z12.31 Encntr screen mammogram for malignant neoplasm of breast Z68.41 Body mass index (BMI) 40.0-44.9, adult Z23 Encounter for immunization Z71.6 Tobacco abuse counseling Office Visit 02/07/2017 3:00p [facility] Alma Delia Nogueira Essential ( primary) Nikolai Castellano hypertension J44.9 Chronic obstructive pulmonary disease, unspecified F17.200 Nicotine dependence, unspecified, uncomplicated I89.0 Lymphedema, not elsewhere classified R25.2 Cramp and spasm Office Visit 12/27/2016 3:20p [facility] Alma Delia Cardona0 Essential ( primary) Nikolai Castellano hypertension F17.218 Nicotine dependence, cigarettes, w oth disorders J44.9 Chronic obstructive pulmonary disease, unspecified F17.200 Nicotine dependence, unspecified, uncomplicated Office Visit 11/08/2016 2:40p [facility] Alma Delia Nogueira Essential ( primary) Nikolai Castellano hypertension F17.218 Nicotine dependence, cigarettes, w oth disorders Office Visit 09/27/2016 11:30a [facility] Alma Delia Nogueira Essential ( primary) Nikolai Castellano hypertension Office Visit 09/20/2016 11:10a [facility] Alma Delia Nogueira Essential ( primary) Nikolai Castellano hypertension F17.218 Nicotine dependence, cigarettes, w oth disorders Office Visit 04/10/2016 2:00p [facility] Alma Delia Win Z00.01 Encounter for Nikolai Castellano general adult medical exam w abnormal findings F17.200 Nicotine dependence, unspecified, uncomplicated J44.9 Chronic obstructive pulmonary disease, unspecified I89.0 Lymphedema, not elsewhere classified B35.4 Tinea corporis Z12.31 Encntr screen mammogram for malignant neoplasm of breast Z23 Encounter for immunization Office Visit 03/13/2016 11:20a [facility] Alma Delia Win R60.0 Localized edema Nikolai Castellano R06.02 Shortness of breath F17.218 Nicotine dependence, cigarettes, w oth disorders Z71.6 Tobacco abuse counseling Office Visit 02/23/2016 4:00p Main Office Tosinmarcel Araujo, R60.0 Localized edema TACK MAKER R06.02 Shortness of breath J44.9 Chronic obstructive pulmonary disease, unspecified Office Visit 12/03/2015 11:00a [facility] Tosin Becerrabhart, TACK MAKER R05 Cough R06.02 Shortness of breath R00.0 Tachycardia, unspecified Office Visit 11/16/2015 3:30p Main Office Sarah Nix, TACK MAKER M54.32 Sciatica, left side M25.562 Pain in left knee M25.561 Pain in right knee Office Visit 09/08/2015 9:15a Main Office Gideon Bryant J09.x9 Flu due to mikki Fitzpatrick M.D. novel influenza A virus w oth manifest J09.X9 Flu due to ident novel influenza A virus w oth manifest Office Visit 03/24/2015 2:50p [facility] Alma Delia Win 288.60 Leukocytosis, Office Nikolai Castellano Unspecified 268.9 Vitamin D Deficiency Unspec 496 COPD Airway Obstruction Chronic Not Class Elsewhere 305.1 Tobacco Use Disorder v03.82 Streptococcus Pneumoniae Vaccination Spec Other v04.81 Need For Prophylactic Vaccination & Inoculation/Influenza Office Visit 02/22/2015 1:00p [facility] Office Alma Delia Win V70.0 Examination Nikolai Castellano General Medical Routine AT Health [facility] 496 COPD Airway Obstruction Chronic Not Class Elsewhere 305.1 Tobacco Use Disorder 401.9 Hypertension Unspec 562.11 Diverticulitis Colon W/O Hemorrhage 278.02 Overweight 790.6 Abnormal Blood Chemistry Other V76.12 Screening Mammogram Malig Kojo Other Office Visit 12/09/2014 1:00p Main Office Makenna Alonso, 401.9 Hypertension Unspec Afnp-C 496 COPD Airway Obstruction Chronic Not Class Elsewhere Office Visit 02/18/2014 2:00p [facility] Office Alma Delia Win V70.0 Examination Nikolai Castellano General Medical Routine AT Health Care Facility 496 COPD Airway Obstruction Chronic Not Class Elsewhere 305.1 Tobacco Use Disorder 696.1 Psoriasis Other 278.02 Overweight 401.9 Hypertension Unspec V72.31 Routine Radiology Asst Examination Office Visit 12/29/2013 11:30a Main Office Alma Delia Win 401.9 Hypertension Unspec Nikolai Castellano Office Visit 12/01/2013 11:30a Main Office Alma Delia Win 401.9 Hypertension Unspec Nikolai Castellano 305.1 Tobacco Use Disorder 696.0 Psoriatic Arthropathy Office Visit 05/04/2013 4:00p Main Office Alma Delia Win V03.82 Streptococcus Nikolai Castellano Pneumoniae Vaccination Spec Other 401.9 Hypertension Unspec Office Visit 04/17/2013 11:10a [facility] Alma Delia Win 466.0 Bronchitis Acute Nikolai Castellano 401.9 Hypertension Unspec 496 COPD Airway Obstruction Chronic Not Class Elsewhere 305.1 Tobacco Use Disorder V04.81 Need For Prophylactic Vaccination & Inoculation/Influenza Office Visit 04/01/2013 8:30a [facility] Tosin 496 COPD Airway Van, TACK MAKER Obstruction Chronic Not Class Elsewhere 465.9 URI Upper Respiratory Infections Acute Unspec Sites 305.1 Tobacco Use Disorder 401.9 Hypertension Unspec Office Visit 03/27/2013 10:30a Main Office Tosin Araujo, 496 COPD Airway TACK MAKER Obstruction Chronic Not Class Elsewhere 465.9 URI Upper Respiratory Infections Acute Unspec Sites Office Visit 03/23/2013 8:30a Main Office Radha Goodwin, 465.9 URI Upper Afnp-C Respiratory Infections Acute Unspec Sites 496 COPD Airway Obstruction Chronic Not Class Elsewhere 401.9 Hypertension Unspec V76.10 Screening For Malignant Neoplasm Breast Office Visit 10/28/2012 11:30a Main Office Makenna Alonso 401.9 Hypertension Unspec Afnp-C 496 COPD Airway Obstruction Chronic Not Class Elsewhere 305.1 Tobacco Use Disorder Office Visit 10/14/2012 11:30a Main Office Makenna Alonso 401.9 Hypertension Unspec Afnp-C 496 COPD Airway Obstruction Chronic Not Class Elsewhere 305.1 Tobacco Use Disorder 715.96 Osteoarthrosis Unspec Genlzd Or Localzd Lower Leg Office Visit 10/09/2012 10:45a [facility] Makenna Alonso, 496 COPD Airway Afnp-C Obstruction Chronic Not Class Elsewhere 305.1 Tobacco Use Disorder 401.9 Hypertension Unspec Office Visit 04/04/2012 4:00p [facility] Alma Delia Win 366.9 Cataract Unspec Nikolai Castellano 496 COPD Airway Obstruction Chronic Not Class Elsewhere 305.1 Tobacco Use Disorder V72.83 Examination Preoperative Other Spec Office Visit 07/19/2011 11:00a Main Office Hernán Grant 305.1 Tobacco Use Nikolai Abdi Disorder 718.87 Derangement Joint Other Not Elsewhere Class Ankle & Foot Office Visit 06/14/2011 1:20p Main Office Hernán Joseph COPD Airway Nikolai Abdi Obstruction Chronic Not Class Elsewhere 719.47 Pain Joint Ankle & Foot V72.31 Routine Radiology Asst Examination V70.0 Examination General Medical Routine AT Health Care Facility 627.2 Menopausal Or Female Climacteric State, Symptomatic V72.0 Examination Eyes & Vision Office Visit 05/04/2011 8:40a [facility] Hernán Joseph COPD Airway Nikolai Abdi Obstruction Chronic Not Class Elsewhere 696.1 Psoriasis Other 719.47 Pain Joint Ankle & Foot V04.81 Need For Prophylactic Vaccination & Inoculation/Influenza V77.91 Screening For Lipoid Disorders Office Visit 04/06/2010 4:15p Main Office Makenna Alonso, 493.90 Asthma Unspec W/O Afnp-C Status Asthmaticus V04.81 Need For Prophylactic Vaccination & Inoculation/Influenza v04.81 Need For Prophylactic Vaccination & Inoculation/Influenza Office Visit 11/01/2008 10:00a Main Office Radha Goodwin V72.31 Routine Radiology Asst Afnp-C Examination V76.10 Screening For Malignant Neoplasm Breast V76.2 Screening Malignant Neoplasm Cervix V76.51 Screening For Malignant Neoplasms Colon V77.1 Screening Diabetes Mellitus V78.1 Screening Deficiency Anemia Other & Unspec V77.0 Screening Thyroid Disorders V77.91 Screening For Lipoid Disorders V06.5 Tetanus Diphtheria (DT) Office Visit 10/07/2008 3:10p Main Office Tosin vicente COPD Airway Nikolai Fregoso Obstruction Chronic Not Class Elsewhere Office Visit 09/24/2008 4:20p [facility] Gideon Bryant 466.0 Bronchitis Acute Nikolai Fitzpatrick 493.92 Asthma Unspec W/ Acute Exacerbation Office Visit 09/10/2008 4:00p [facility] Gideon Bryant 493.92 Asthma Unspec W/ Nikolai Fitzpatrick Acute Exacerbation Office Visit 06/07/2008 11:15a Main Office Radha 465.9 URI Upper [place], Respiratory Afnp-C Infections Acute Unspec Sites 466.0 Bronchitis Acute 493.92 Asthma Unspec W/ Acute Exacerbation Office Visit 03/19/2008 2:10p [facility] Gideon Bryant 490 Bronchitis Acute Nikolai Fitzpatrick Or Chronic Not Spec Office Visit 09/19/2007 4:30p Main Office Sarah Nix, 496 COPD Airway TACK MAKER Obstruction Chronic Not Class Elsewhere Office Visit 05/20/2007 10:30a Main Office Sarah Nix, 696.1 Psoriasis Other TACK MAKER Office Visit 10/07/2006 10:00a Main Office Radha V72.31 Routine Radiology Asst [employer] [facility], Examination Afnp-C 719.47 Pain Joint Ankle & Foot 381.19 Otitis Media Chronic Serous Other 626.2 Menstruation Excessive Or Frequent V82.9 Screening For Unspec Condition Office Visit 09/13/2006 9:30a Main Office Radha 381.00 Otitis Media [place], Afnp-C Nonsuppurative Acute Unspec Plan of Treatment 08/26/2018 - Alma Delia Castellano M.D.I10 Essential (primary) hypertensionNew Labs :TSH ([facility]), Ordered: 08/26/18Comments:well controlled. continue all medications.J44.9 Chronic obstructive pulmonary disease, unspecifiedComments: Stable. Continue present meds.Z71.6 Tobacco abuse counselingComments:see if you can cut your cigarettes in half. You might be satisfied with just a few puffs.Z68.41 Body mass index (BMI) 40.0-44.9, adultComments:You are gaining weight most likely due to that you are not smoking as much as before. Continue to eat fruit and vegetables, and get more exercise.Walk from [employer] to [place] and back. and see how far you can go before stopping.AllComments:~B_~U_Medication Management~b_~u_ Patient Understands medications she's taking? Yes No Are there Barriers to Adherence? Yes No Has the patient been asked about herbal supplements and therapies, and OTC meds? Yes No
[2018-09-20 21:32] VITALS: BP 151/70
[2018-09-20] MEDS ORDERED: Sulfamethox/Trimethoprim DS 800/160* TAB PO ONE (21:42)
[2018-09-20] MEDS ORDERED: Albuterol/Ipratropium NEB.SOL* Albuterol 2.5 MG/Ipratropium 0.5 MG 3 ML INH ONE (21:42)
[2018-09-20] MEDS ORDERED: predniSONE TAB* 20 MG PO ONE (21:42)
--- NOTE | 2018-09-20 21:51 | UC ---
Respiratory Complaint HPI - HPI Summary HPI Summary: Patient with a hx of COPd, arrives on her O2 concentrated complaining of increse difficulty breathing, productive cough and sinus congestion. - History of Current Complaint Chief Complaint: UCRespiratory Stated Complaint: CONGESTED Time Seen by Provider: 09/20/18 21:41 Hx Obtained From: Patient Hx Last Menstrual Period: post menopause ?: No Onset/Duration: Sudden Onset, Lasting Days - 2 Timing: Constant Severity Initially: Mild Severity Currently: Moderate Pain Intensity: 0 Character: Cough: Productive Aggravating Factors: Exertion, Deep Breaths Alleviating Factors: Bronchodilator Associated Signs And Symptoms: Positive: Dyspnea, Wheezing, URI, Nasal Congestion, Sinus Discomfort - Risk Factors Cardiac Risk Factors: Smoking - Allergies/Home Medications Allergies/Adverse Reactions: Allergies Allergy/AdvReac Type Severity Reaction Status Date / Time hydroxychloroquine Allergy Unknown Verified 09/20/18 21:32 Reaction Details lisinopril Allergy Unknown Verified 09/20/18 21:32 Reaction Details PMH/Surg Hx/FS Hx/Imm Hx Previously Healthy: Yes - Surgical History Surgical History: Yes Surgery Procedure, Year, and Place: 1988 LOWER LEFT LUMBAR SURGERY, [place]. LEFT BREAST BIOPSY-BENIGN - Family History Known Family History: Positive: Hypertension - Social History Alcohol Use: None Substance Use Type: None Smoking Status (MU): Current Every Day Smoker Type: Cigarettes Amount Used/How Often: 1/2 ppd Have You Smoked in the Last Year: Yes Household Exposure Type: Cigarettes - Immunization History Most Recent Influenza Vaccination: 03/2017 Most Recent Tetanus Shot: up to date Most Recent Pneumonia Vaccination: none Review of Systems All Other Systems Reviewed And Are Negative: Yes Constitutional: Positive: Fatigue Skin: Positive: Negative Eyes: Positive: Negative ENT: Positive: Sore Throat, Nasal Discharge, Sinus Congestion Respiratory: Positive: Shortness Of Breath, Cough Cardiovascular: Positive: Negative Gastrointestinal: Positive: Negative Genitourinary: Positive: Negative Motor: Positive: Negative Neurovascular: Positive: Negative Musculoskeletal: Positive: Negative Neurological: Positive: Negative Psychological: Positive: Negative Is Patient Immunocompromised?: No Physical Exam Triage Information Reviewed: Yes Appearance: Well-Nourished, Ill-Appearing, Pain Distress Vital Signs: Initial Vital Signs Temp 98.7 F 09/20/18 21:24 Pulse 91 09/20/18 21:24 Resp 24 09/20/18 21:24 BP 151/70 09/20/18 21:24 Pulse Ox 95 09/20/18 21:24 Vital Signs Reviewed: Yes Eye Exam: Normal ENT: Positive: Pharyngeal erythema - wiht PND, Nasal congestion, TM bulging Dental Exam: Normal Neck exam: Normal Respiratory: Positive: Chest non-tender, Normal breath sounds, No respiratory distress, Rhonchi, Wheezing Cardiovascular Exam: Normal Cardiovascular: Positive: No Murmur, Pulses Normal Bowel Sounds: Positive: Present Musculoskeletal Exam: Normal Neurological Exam: Normal Psychological Exam: Normal Skin Exam: Normal Respiratory Course/Dx - Course Course Of Treatment: hx obtained, exam performed ,meds reviewed, treated for COPD exacerbation and sinusitis - Differential Dx/Diagnosis Differential Diagnosis/HQI/PQRI: Bronchitis, Exacerbation Of COPD, Sinusitis Provider Diagnosis: Sinusitis, Bronchitis, COPD (chronic obstructive pulmonary disease) Discharge - Sign-Out/Discharge Documenting (check all that apply): Patient Departure All imaging exams completed and their final reports reviewed: No Studies - Discharge Plan Condition: Stable Disposition: HOME Prescriptions: Sulfamethox/Trimethoprim DS* [Bactrim DS 800/160 TAB*] 1 tab PO BID #13 tab Patient Education Materials: Chronic Bronchitis (ED), Sinusitis (ED) Referrals: Alma Delia Castellano MD [Primary Care Provider] - Additional Instructions: 1. take the medication as prescribed. 2. rest and use your inhalers as needed. 3. Follow up if your breathing becomes worse. - Billing Disposition and Condition Condition: STABLE Disposition: Home
== END 2018-09-20 22:20 | disposition home or self-care (01) ==
LOC: UCEAST 21:22
DX: J20.9 Acute bronchitis, unspecified (principal); J32.9 Chronic sinusitis, unspecified; J44.9 Chronic obstructive pulmonary disease, unspecified; F17.210 Nicotine dependence, cigarettes, uncomplicated; Z88.8 Allergy status to other drugs, medicaments and biological substances
CPT/HCPCS: 99213; A9270-GY; G0463; J7512

== ENCOUNTER 2022-12-22 01:27 | Inpatient (IN) ==
[2022-12-22] MEDS ORDERED: methylPREDNISolone SOD SUCC 125 mg 2 ML VIAL IV ONE (01:38)
[2022-12-22] MEDS ORDERED: Albuterol/Ipratropium NEB.SOL (2.5/0.5 MG) 3 ML NEB.SOLN INH ONE (01:38)
[2022-12-22] MEDS ORDERED: Albuterol/Ipratropium NEB.SOL (2.5/0.5 MG) 3 ML NEB.SOLN ONE ×2 (01:49→13:58)
[2022-12-22 01:53] LABS: ABS Basophils 0.3 10^3/uL (0.0-0.1); ABS Eosinophils 0.7 10^3/uL (0.0-0.5); ABS Lymphocytes 2.6 10^3/uL (1.0-4.8); ABS Monocytes 0.7 10^3/uL (0.0-0.9); ABS Neutrophils 14.8 10^3/uL (1.5-7.6); Eosinophil % 3.6 %; Hematocrit 35.5 % (35-45); Hemoglobin 11.3 g/dL (11.5-14.3); Lymphocyte % 13.7 %; Mean Corpuscular Hemoglobin 25.9 pg (27-33); Mean Corpuscular Hgb Conc 31.9 g/dL (31-36); Mean Corpuscular Volume 81.2 fL (80-97); Mean Platelet Volume 7.4 fL (7.5-11.2); Platelet Count 531 10^3/uL (150-450); Red Blood Count 4.38 10^6/uL (3.63-4.92); Red Cell Distribution Width 16.9 % (12-17); White Blood Count 19.1 10^3/uL (3.8-11.8)
[2022-12-22 02:03] LABS: Activated Partial Thrombo Time 32.5 seconds (26.0-38.0); INR 1.05 (0.88-1.18)
[2022-12-22 02:09] LABS: Albumin 3.9 g/dL (3.2-5.2); Albumin/Globulin Ratio 1.1 (1-3); C Reactive Protein 19.77 mg/L (<8.01); Calcium 9.2 mg/dL (8.6-10.3); Creatinine, Serum 0.66 mg/dL (0.51-0.95); Globulin 3.7 g/dL (2-4); Potassium 3.9 mmol/L (3.5-5.0); Total Bilirubin 0.5 mg/dL (0.2-1.0); Total Protein 7.6 g/dL (6.4-8.9); eGFR CKD-EPI 97.9 (>60)
[2022-12-22 02:09] LABS: PCO2 Arterial 46 mmHg (35-45); PO2 Arterial 72 mmHg (80-100)
[2022-12-22] MEDS ORDERED: Lidocaine 1% VIAL 10 MG/ML VIAL 30 ML INJ ONE (02:19)
[2022-12-22] MEDS ORDERED: Albuterol HFA INHALER 8 gm MDI INH PRN (06:00)
[2022-12-22] MEDS: Enoxaparin 40 MG/0.4 ML SYR SUBCUT SCH (06:28)
[2022-12-22] MEDS: Nicotine PATCH 21 MG/24 HR PATCH TRANSDERM SCH (06:28)
[2022-12-22] MEDS: Amoxicillin/Clavul 875/125 TAB (Augmentin 875 tab) PO SCH ×2 (08:28→21:51)
[2022-12-22 08:38] LABS: Hematocrit 35.1 % (35-45); Hemoglobin 11.7 g/dL (11.5-14.3); Mean Corpuscular Hemoglobin 26.6 pg (27-33); Mean Corpuscular Hgb Conc 33.2 g/dL (31-36); Mean Corpuscular Volume 80.2 fL (80-97); Mean Platelet Volume 7.3 fL (7.5-11.2); Platelet Count 536 10^3/uL (150-450); Red Blood Count 4.38 10^6/uL (3.63-4.92); Red Cell Distribution Width 16.6 % (12-17); White Blood Count 17.1 10^3/uL (3.8-11.8)
[2022-12-22] MEDS ORDERED: Amoxicillin/Clavul 875/125 TAB (Augmentin 875 tab) PO SCH (09:00)
[2022-12-22 09:01] LABS: High Sensitivity Troponin 1 Hr 5 pg/mL (<15)
[2022-12-22] MEDS: ACTUA INH SCH ×2 (10:38→21:52)
[2022-12-22] MEDS: BUDESONIDE GLYCOPYR FORMOTEROL INH SCH ×2 (10:38→21:52)
[2022-12-22] MEDS: Albuterol/Ipratropium NEB.SOL (2.5/0.5 MG) 3 ML NEB.SOLN INH SCH ×2 (16:59→18:35)
[2022-12-23] MEDS: Nicotine PATCH 21 MG/24 HR PATCH TRANSDERM SCH (06:10)
[2022-12-23] MEDS: Enoxaparin 40 MG/0.4 ML SYR SUBCUT SCH (06:10)
[2022-12-23] MEDS: BUDESONIDE GLYCOPYR FORMOTEROL INH SCH ×2 (07:22→20:18)
[2022-12-23] MEDS: ACTUA INH SCH ×2 (07:22→20:18)
[2022-12-23 07:49] LABS: ABS Lymphocytes 1.5 10^3/uL (1.0-4.8); ABS Monocytes 0.9 10^3/uL (0.0-0.9); Hematocrit 35.2 % (35-45); Hemoglobin 11.3 g/dL (11.5-14.3); Lymphocyte % 7.4 %; Mean Corpuscular Hemoglobin 25.9 pg (27-33); Mean Corpuscular Hgb Conc 32.2 g/dL (31-36); Mean Corpuscular Volume 80.4 fL (80-97); Mean Platelet Volume 7.5 fL (7.5-11.2); Platelet Count 573 10^3/uL (150-450); Red Blood Count 4.38 10^6/uL (3.63-4.92); Red Cell Distribution Width 17.1 % (12-17); White Blood Count 20.5 10^3/uL (3.8-11.8)
[2022-12-23 07:56] LABS: Albumin 3.6 g/dL (3.2-5.2); Calcium 9.6 mg/dL (8.6-10.3); Creatinine, Serum 0.85 mg/dL (0.51-0.95); Globulin 3.5 g/dL (2-4); Potassium 4.6 mmol/L (3.5-5.0); Total Bilirubin 0.3 mg/dL (0.2-1.0); Total Protein 7.1 g/dL (6.4-8.9); eGFR CKD-EPI 76.5 (>60)
[2022-12-23] MEDS ORDERED: cefTRIAXone 2 gm/50 mL D5W 2 GM/50 ML BAG IV ONE (08:00)
[2022-12-23] MEDS ORDERED: Azithromycin 500 mg/250 ml NS 500 MG/250 ML BAG IVPB ONE (08:30)
[2022-12-23] MEDS: Albuterol/Ipratropium NEB.SOL (2.5/0.5 MG) 3 ML NEB.SOLN INH PRN (11:12)
[2022-12-24] MEDS: Enoxaparin 40 MG/0.4 ML SYR SUBCUT SCH (05:39)
[2022-12-24] MEDS: Nicotine PATCH 21 MG/24 HR PATCH TRANSDERM SCH (05:39)
[2022-12-24] MEDS: BUDESONIDE GLYCOPYR FORMOTEROL INH SCH (07:50)
[2022-12-24] MEDS: ACTUA INH SCH (07:50)
[2022-12-24] MEDS ORDERED: Amoxicillin/Clavul 875/125 TAB (Augmentin 875 tab) PO SCH (09:00)
[2022-12-24] MEDS: methylPREDNISolone SOD SUCC 40 mg/ml 1 ml VIAL IV SCH ×2 (16:35→21:47)
[2022-12-24] MEDS: cefTRIAXone 1 gm/50 mL D5W 1 GM/50 ML BAG IV SCH (16:35)
[2022-12-24] MEDS: PTO:BUDESONIDE/GLYCOPYR/FORMOTEROL MDI (NF) INH SCH (19:05)
[2022-12-24] MEDS: Albuterol/Ipratropium NEB.SOL (2.5/0.5 MG) 3 ML NEB.SOLN INH PRN (22:51)
[2022-12-25] MEDS: Nicotine PATCH 21 MG/24 HR PATCH TRANSDERM SCH (05:28)
[2022-12-25] MEDS: Enoxaparin 40 MG/0.4 ML SYR SUBCUT SCH (05:28)
[2022-12-25] MEDS: methylPREDNISolone SOD SUCC 40 mg/ml 1 ml VIAL IV SCH ×3 (05:28→21:59)
[2022-12-25 07:02] LABS: ABS Lymphocytes 1.2 10^3/uL (1.0-4.8); ABS Monocytes 0.2 10^3/uL (0.0-0.9); ABS Neutrophils 10.9 10^3/uL (1.5-7.6); Hematocrit 35.5 % (35-45); Hemoglobin 11.4 g/dL (11.5-14.3); Lymphocyte % 9.9 %; Mean Corpuscular Hemoglobin 25.7 pg (27-33); Mean Corpuscular Hgb Conc 32.1 g/dL (31-36); Mean Corpuscular Volume 80.2 fL (80-97); Mean Platelet Volume 7.6 fL (7.5-11.2); Platelet Count 546 10^3/uL (150-450); Red Blood Count 4.43 10^6/uL (3.63-4.92); Red Cell Distribution Width 16.8 % (12-17); White Blood Count 12.4 10^3/uL (3.8-11.8)
[2022-12-25] MEDS: PTO:BUDESONIDE/GLYCOPYR/FORMOTEROL MDI (NF) INH SCH ×2 (07:31→19:33)
[2022-12-25] MEDS ORDERED: Magnesium Hydroxide LIQ 30 ML UDC PO PRN (14:12)
[2022-12-25] MEDS: Polyethylene Glycol 3350 17 GM PACKET PO SCH (14:48)
[2022-12-25] MEDS: cefTRIAXone 1 gm/50 mL D5W 1 GM/50 ML BAG IV SCH (16:52)
[2022-12-26] MEDS: Enoxaparin 40 MG/0.4 ML SYR SUBCUT SCH (06:18)
[2022-12-26] MEDS: Nicotine PATCH 21 MG/24 HR PATCH TRANSDERM SCH (06:18)
[2022-12-26] MEDS: methylPREDNISolone SOD SUCC 40 mg/ml 1 ml VIAL IV SCH ×3 (06:18→20:43)
[2022-12-26] MEDS: Albuterol/Ipratropium NEB.SOL (2.5/0.5 MG) 3 ML NEB.SOLN INH PRN (06:25)
[2022-12-26 06:27] LABS: ABS Lymphocytes 1.3 10^3/uL (1.0-4.8); ABS Monocytes 0.4 10^3/uL (0.0-0.9); ABS Neutrophils 14.8 10^3/uL (1.5-7.6); Hematocrit 36.7 % (35-45); Hemoglobin 11.9 g/dL (11.5-14.3); Mean Corpuscular Hemoglobin 25.8 pg (27-33); Mean Corpuscular Hgb Conc 32.3 g/dL (31-36); Mean Corpuscular Volume 80.1 fL (80-97); Mean Platelet Volume 7.5 fL (7.5-11.2); Platelet Count 579 10^3/uL (150-450); Red Blood Count 4.59 10^6/uL (3.63-4.92); Red Cell Distribution Width 17.1 % (12-17); White Blood Count 16.6 10^3/uL (3.8-11.8)
[2022-12-26] MEDS: PTO:BUDESONIDE/GLYCOPYR/FORMOTEROL MDI (NF) INH SCH ×2 (07:02→19:19)
[2022-12-26] MEDS: Polyethylene Glycol 3350 17 GM PACKET PO SCH (11:04)
[2022-12-26] MEDS: cefTRIAXone 1 gm/50 mL D5W 1 GM/50 ML BAG IV SCH (15:19)
[2022-12-27] MEDS: Enoxaparin 40 MG/0.4 ML SYR SUBCUT SCH (05:36)
[2022-12-27] MEDS: Nicotine PATCH 21 MG/24 HR PATCH TRANSDERM SCH (05:36)
[2022-12-27] MEDS: methylPREDNISolone SOD SUCC 40 mg/ml 1 ml VIAL IV SCH ×2 (05:36→14:02)
[2022-12-27 05:55] LABS: ABS Basophils 0.1 10^3/uL (0.0-0.1); ABS Lymphocytes 1.2 10^3/uL (1.0-4.8); ABS Monocytes 0.3 10^3/uL (0.0-0.9); ABS Nucleated RBC 0.01 10^3/ul; Hematocrit 38.8 % (35-45); Hemoglobin 12.5 g/dL (11.5-14.3); Lymphocyte % 7.7 %; Mean Corpuscular Hemoglobin 25.7 pg (27-33); Mean Corpuscular Hgb Conc 32.1 g/dL (31-36); Mean Platelet Volume 7.5 fL (7.5-11.2); Nucleated Red Blood Cells % 0.1 /100 WBC (0.0-0.4); Platelet Count 565 10^3/uL (150-450); Red Blood Count 4.85 10^6/uL (3.63-4.92); Red Cell Distribution Width 16.7 % (12-17); White Blood Count 15.6 10^3/uL (3.8-11.8)
[2022-12-27 06:03] LABS: Calcium 9.6 mg/dL (8.6-10.3); Magnesium 2.2 mg/dL (1.9-2.7); Potassium 4.6 mmol/L (3.5-5.0)
[2022-12-27 06:09] LABS: Creatinine, Serum 0.7 mg/dL (0.51-0.95); eGFR CKD-EPI 96.5 (>60)
[2022-12-27] MEDS: PTO:BUDESONIDE/GLYCOPYR/FORMOTEROL MDI (NF) INH SCH ×2 (07:22→23:07)
[2022-12-27] MEDS: Polyethylene Glycol 3350 17 GM PACKET PO SCH (08:44)
[2022-12-27] MEDS: cefTRIAXone 1 gm/50 mL D5W 1 GM/50 ML BAG IV SCH (15:09)
[2022-12-27 18:01] VITALS: BP 158/59
== END 2022-12-27 17:50 | disposition short-term general hospital (02) | DRG 199 ==
LOC: ED 01:27 → EDHOLD 01:27 → MED 11:22 → SUATTDRO 12:34 → ICU 12-23 11:39 → MED 12-24 02:08 → ICU 12-26 09:14
PROVIDERS: ADMIT Internal Medicine; ATTEND Internal Medicine Critical Care Medicine